=== PATIENT | male | born 1950 | race American Indian/Alaskan Native ===

== ENCOUNTER 2021-11-27 16:32 | Inpatient (IN) | payer MEDICAID, MEDICARE ==
[2021-11-27] MEDS ORDERED: SODIUM CHLORIDE 0.9% 1000 ML IV SOLN IV ONE (16:42)
[2021-11-27] MEDS ORDERED: CEFEPIME/NS 2 GM/100 ML 2 GM/100 ML BAG IV ONE (16:42)
[2021-11-27] MEDS ORDERED: VANCOMYCIN PHARMACY TO DOSE IV SCH ×2 (17:00→23:45)
--- NOTE | 2021-11-27 17:03 | Emergency Department Report ---
ED Fever HPI - General Chief Complaint: Fever Stated Complaint: SEPSIS PUI?: No Time Seen by Provider: 11/27/21 16:41 Source: patient, family, EMS Exam Limitations: clinical condition - History of Present Illness Initial Comments: Chief complaint: Not as responsive, weak HPI: This is a 71-year-old male with history of congestive heart failure and liver cancer with metastasis to the colon. He presents with confusion and weakness. He was in his normal state of health this morning. When daughter returned from running errands, she noticed that the patient was weak. He was not as responsive. He appeared to be panting and shivering. Blood pressure was 82/47 on EMS arrival. He was warm to touch. He received 250 mL of IV fluid. EMS administered dopamine. Tachycardia worsened after the dopamine infusion. Patient is confused. Unable to give history. I spoke with daughter [phone]. Daughter's name is Lizzy Webb. Extensive family history of cancer including mother and brother. Mr. Smiley was diagnosed with liver cancer October 2019. He decided to not undergo chemotherapy. His condition worsened this year. In October 2021 he sought medical treatment. Liver cancer has now "invaded" his colon. He received an infusion to bolster his immune system in October. He has not received any other type of treatment. Timing/Duration: just prior to arrival Fever Severity/Quality: subjective Associated Symptoms: other (Patient is altered) ED Review of Systems ROS: Stated complaint: SEPSIS Other details as noted in HPI Comment: Unobtainable due to pts medical conditions (Patient is critically ill and altered) ED Past Medical Hx - Past Medical History Previous Medical History?: Yes Hx Congestive Heart Failure: Yes Additional medical history: Metastatic liver cancer - Surgical History Past Surgical History?: No - Family History Family history: cancer (Excessive family history of cancer) - Social History Smoking Status: Former Smoker Substance Use Type: Alcohol ED Physical Exam - General Limitations: Altered Mental Status General appearance: in no apparent distress, lethargic, other (Appears ill, confabulating speech) - Head Head exam: Present: atraumatic, normocephalic - Eye Eye exam: Present: normal appearance - ENT ENT exam: Present: mucous membranes moist - Neck Neck exam: Present: normal inspection, full ROM - Respiratory Respiratory exam: Present: normal lung sounds bilaterally. Absent: respiratory distress, wheezes, rales, rhonchi - Cardiovascular Cardiovascular Exam: Present: normal rhythm, tachycardia, normal heart sounds. Absent: systolic murmur, diastolic murmur, rubs, gallop - GI/Abdominal GI/Abdominal exam: Present: soft, normal bowel sounds. Absent: distended, tenderness, guarding, rebound - Rectal Rectal exam: Present: deferred - Extremities Exam Extremities exam: Present: normal inspection - Back Exam Back exam: Present: normal inspection - Neurological Exam Neurological exam: Present: altered - Psychiatric Psychiatric exam: Present: flat affect - Skin Skin exam: Present: warm, dry, intact, normal color. Absent: rash ED Course Vital Signs 11/27/21 11/27/21 11/27/21 16:38 16:44 16:45 Temperature 100.5 F H Pulse Rate 136 H 134 H 135 H Respiratory 17 36 H 35 H Rate Blood Pressure 108/51 Blood Pressure 79/56 [Right] O2 Sat by Pulse 98 94 Oximetry 11/27/21 11/27/21 11/27/21 17:00 17:15 17:22 Temperature Pulse Rate 128 H 127 H 126 H Respiratory 31 H 30 H 30 H Rate Blood Pressure 108/51 93/49 Blood Pressure 93/49 [Right] O2 Sat by Pulse 95 99 Oximetry 11/27/21 11/27/21 11/27/21 17:27 17:31 17:45 Temperature Pulse Rate 124 H 122 H Respiratory 30 H 19 25 H Rate Blood Pressure 93/49 93/49 Blood Pressure [Right] O2 Sat by Pulse 100 99 100 Oximetry 11/27/21 11/27/21 18:01 18:15 Temperature Pulse Rate 120 H 120 H Respiratory 25 H 29 H Rate Blood Pressure 96/51 96/51 Blood Pressure [Right] O2 Sat by Pulse 100 100 Oximetry ED Medical Decision Making - Lab Data Result diagrams: 11/27/21 17:03 11/27/21 17:03 Laboratory Results - last 24 hr 11/27/21 11/27/21 11/27/21 17:03 17:03 17:03 WBC 20.1 H RBC 2.66 L Hgb 8.0 L Hct 25.2 L MCV 95 H MCH 30 MCHC 32 RDW 18.2 H Plt Count 351 Add Manual Diff Complete Total Counted 100 Seg Neutrophils % Sheet Pile Hammer Operator Seg Neuts % (Manual) 93.0 H Band Neutrophils % 4.0 Lymphocytes % (Manual) 2.0 L Reactive Lymphs % (Man) 0 Monocytes % (Manual) 1.0 Eosinophils % (Manual) 0 Basophils % (Manual) 0 Metamyelocytes % 0 Myelocytes % 0 Promyelocytes % 0 Blast Cells % 0 Nucleated RBC % Not Reportable Seg Neutrophils # Man 18.7 H Band Neutrophils # 0.8 Lymphocytes # (Manual) 0.4 L Abs React Lymphs (Man) 0.0 Monocytes # (Manual) 0.2 Eosinophils # (Manual) 0.0 Basophils # (Manual) 0.0 Metamyelocytes # 0.0 Myelocytes # 0.0 Promyelocytes # 0.0 Blast Cells # 0.0 WBC Morphology Not Reportable Hypersegmented Neuts Not Reportable Hyposegmented Neuts Not Reportable Hypogranular Neuts Not Reportable Smudge Cells Not Reportable Toxic Granulation 1+ Toxic Vacuolation Not Reportable Dohle Bodies Not Reportable Pelger-Huet Anomaly Not Reportable Eze Rods Not Reportable Platelet Estimate Consistent w auto Clumped Platelets Not Reportable Plt Clumps, EDTA Not Reportable Large Platelets Not Reportable Giant Platelets Not Reportable Platelet Satelliting Not Reportable Plt Morphology Comment Not Reportable RBC Morphology Not Reportable Dimorphic RBCs Not Reportable Polychromasia Not Reportable Hypochromasia Not Reportable Poikilocytosis Not Reportable Anisocytosis 1+ Microcytosis Not Reportable Macrocytosis Not Reportable Spherocytes Not Reportable Pappenheimer Bodies Not Reportable Sickle Cells Not Reportable Target Cells Not Reportable Tear Drop Cells Not Reportable Ovalocytes Not Reportable Helmet Cells Not Reportable [place] Bodies Not Reportable [place] Rings Not Reportable [place] Cells Not Reportable Bite Cells Not Reportable Crenated Cell Not Reportable Elliptocytes Not Reportable Acanthocytes (Spur) Not Reportable Rouleaux Not Reportable Hemoglobin C Crystals Not Reportable Schistocytes Not Reportable Malaria parasites Not Reportable Sage Bodies Not Reportable Hem Pathologist Commnt No Sodium 128 L Potassium 4.2 Chloride 96.9 L Carbon Dioxide 20 L Anion Gap 15 BUN 17 Creatinine 1.4 H Estimated GFR 50 BUN/Creatinine Ratio 12 Glucose 104 H Lactic Acid 4.30 H* Calcium 7.9 L Total Bilirubin 0.30 AST 99 H ALT 62 H Alkaline Phosphatase 178 H Total Protein 8.3 H Albumin 2.2 L Albumin/Globulin Ratio 0.4 - Radiology Data Radiology results: report reviewed Patient Name: CARL SMILEY Gender: Male Date of : 1950 Home Phone: Referring Provider: YAMILA DUMONT Organization: [facility] Accession Number: [id number] Requested Date: November 27, 2021 16:42 Report Status: Final Requested Procedure: 1 Procedure Description: XR chest 1V ap Modality: XR Findings Reporting MD: Ricardo Cai Dictation Time: November 27, 2021 16:03 Enamel Cracker: Not available Lead Driver Date: CHEST 1 VIEW INDICATION: fever sepsis. COMPARISON: None. FINDINGS: Support devices: None. Heart: Normal. Lungs/Pleura: Focal density in the inferomedial right hemithorax. The left lung is clear. No pleural abnormality. IMPRESSION: 1. Nonspecific density in the inferomedial right hemithorax is nonspecific. I do not see silhouetting of the right heart border or right hemidiaphragm which suggests this may be extrapulmonary. Large hiatal hernia could have this appearance. CT would be useful to better characterize this. Signer Name: Ricardo Cai MD Signed: 11/27/2021 4:03 PM Workstation Name: [id number] - Medical Decision Making 1. Septic shock: Unclear source of infection. Sepsis bundle initiated in the emergency department. 2. Metastatic liver cancer: Patient states that "I am on my last leg.". He understands that the cancer is terminal. I initiated end-of-life care discussion. He does not want to be on a ventilator. He is unclear if he wants aggressive treatment at this time. 3. Acute metabolic encephalopathy which resolved after resuscitation treatment emergency department. Patient able to give full history. Once blood pressure improved. Repeat blood pressure 99/54 currently map of 63. Admitted to hospital service. Critical Care Time: Yes Critical care time in (mins) excluding proc time.: 40 Critical care attestation.: If time is entered above; I have spent that time in minutes in the direct care of this critically ill patient, excluding procedure time. 40 minutes of critical care time excluding procedures were used in the care of the patient. I came immediately to the bedside upon patient's arrival. I obtained history from EMS at the bedside. I discussed treatment plan with the nursing team members. I reviewed electronic record. I spoke with daughter per phone. Patient presented in shock with significant hypotension. Patient required multiple interventions and reassessments. ED Disposition Clinical Impression: Septic shock, Acute metabolic encephalopathy, Metastatic cancer, Liver cancer Disposition: ADMITTED INPATIENT Is pt being admited?: Yes Does the pt Need Aspirin: No Condition: Fair
--- NOTE | 2021-11-27 17:07 | XRay Report ---
CHEST 1 VIEW INDICATION: fever sepsis. COMPARISON: None. FINDINGS: Support devices: None. Heart: Normal. Lungs/Pleura: Focal density in the inferomedial right hemithorax. The left lung is clear. No pleural abnormality. IMPRESSION: 1. Nonspecific density in the inferomedial right hemithorax is nonspecific. I do not see silhouetting of the right heart border or right hemidiaphragm which suggests this may be extrapulmonary. Large hi atal hernia could have this appearance. CT would be useful to better characterize this. Signer Name: Ricardo Cai MD Signed: 11/27/2021 5:03 PM Workstation Name: [id number]
[2021-11-27 17:33] LABS: Hematocrit 25.2 % (35.5-45.6); Mean Corpuscular HGB Conc 32 % (32-34); Mean Corpuscular Volume 95 fl (84-94); Platelet Count 351 K/mm3 (140-440); Red Blood Count 2.66 M/mm3 (3.65-5.03); Red Cell Distribution Width 18.2 % (13.2-15.2)
[2021-11-27 17:41] LABS: Albumin 2.2 g/dL (3.9-5); Calcium 7.9 mg/dL (8.4-10.2)
[2021-11-27] MEDS ORDERED: VANCOMYCIN 1,250 MG in SODIUM CHLORIDE 0.9% 500 ML 250 ML IV ONE (18:00)
[2021-11-27 18:13] LABS: Band Neutrophils # (Manual) 0.8 K/mm3; Basophils % (Manual) 0 % (0.0-1.8); Eosinophils % (Manual) 0 % (0.0-4.3); Total Cells Counted 100
[2021-11-27 18:14] LABS: Anisocytosis 1+; Platelet Estimate Consistent w Auto; Toxic Granulation 1+
[2021-11-27] MEDS ORDERED: SODIUM CHLORIDE 0.9% 1000 ML 1,000 ML IV ONE ×3 (18:20→18:21)
[2021-11-27 20:24] LABS: Bilirubin,Urine NEG (Negative); Blood,Urine SM (Negative); Color,Urine Yellow (Yellow); Mucus,Urine FEW /HPF; Protein,Urine <15 mg/dL mg/dL (Negative); Urobilinogen,Urine < 2.0 mg/dL (<2.0)
[2021-11-27] MEDS ORDERED: SODIUM CHLORIDE 0.9% 1000 ML 1,000 ML IV SCH (22:30)
[2021-11-27] MEDS ORDERED: SODIUM CHLORIDE 0.9% 500 ML 500 ML ONE (22:57)
[2021-11-27] MEDS ORDERED: SODIUM CHLORIDE 0.9% 500 ML 500 ML IV ONE (23:00)
--- NOTE | 2021-11-27 23:16 | History and Physical Report ---
History of Present Illness Date of examination: 11/27/21 Date of admission: 11/27/2021 Chief complaint: Fever and increasing shortness of breath since a.m. History of present illness: 71-year-old male with history of CHF, colon cancer with metastasis to the liver presents with confusion and generalized weakness. Patient was apparently in normal state of health until this morning. Daughter noticed that the patient was weak in the later part of the morning and was not as responsive. Patient was very short of breath. Blood pressure was 82/47 on EMS arrival. Patient had fever. EMS started him on dopamine. As per the daughter patient was diagnosed with metastatic cancer in October 2019. Patient decided not to undergo chemotherapy. His condition worsened this year. Patient received an infusion to bolster his immune system in October of this year. Patient has not received any other type of treatment. Daughters telephone number is [phone]. Family history of cancer present. - Past Medical History Previous Medical History?: Yes Hx Congestive Heart Failure: Yes Colon Cancer with metastasis to liver. - Surgical History Past Surgical History?: No - Family History Family history: cancer ( family history of cancer) - Social History Smoking Status: Former Smoker Substance Use Type: Alcohol Review of Systems ROS: Stated complaint: SEPSIS Other details as noted in HPI Comment: Unobtainable due to pts medical conditions (Patient is critically ill and altered) Medications and Allergies Allergies Allergy/AdvReac Type Severity Reaction Status Date / Time No Known Allergies Allergy Unverified 11/27/21 16:36 Home Medications Medication Instructions Recorded Confirmed Last Taken Type No Known Home Medications [No 11/28/21 11/28/21 Unknown History Reported Home Medications] Active Meds: Active Medications Vancomycin HCl 1,250 mg/ (Sodium Chloride) 275 mls @ 166.667 mls/hr IV Q24H FAHAD Sodium Chloride (Nacl 0.9% 1000 Ml) 1,000 mls @ 100 mls/hr IV DIRECT FAHAD Last Admin: 11/27/21 22:49 Dose: 100 mls/hr Sodium Chloride (Nacl 0.9% 500 Ml) 500 mls @ 999 mls/hr IV ONCE ONE Stop: 11/27/21 23:30 Last Admin: 11/27/21 23:01 Dose: 999 mls/hr Exam - Constitutional Vitals: Temp Pulse Resp BP Pulse Ox 98.6 F 99 H 16 83/51 98 02/21/22 19:44 11/27/21 23:00 11/27/21 23:00 11/27/21 23:00 11/27/21 23:00 General appearance: Present: mild distress, well-nourished - EENT Eyes: Present: PERRL ENT: hearing intact, clear oral mucosa - Neck Neck: Present: supple, normal ROM - Respiratory Respiratory effort: normal Respiratory: bilateral: CTA, rhonchi, wheezing - Cardiovascular Heart rate: 110 Rhythm: regular Heart Sounds: Present: S1 & S2. Absent: rub, click - Extremities Extremities: no ischemia, pulses intact, pulses symmetrical, No edema Peripheral Pulses: within normal limits - Abdominal General gastrointestinal: Present: soft, non-tender, non-distended, normal bowel sounds Male genitourinary: Present: normal - Rectal Rectal Exam: deferred - Integumentary Integumentary: Present: clear, warm, dry - Musculoskeletal Musculoskeletal: generalized weakness - Psychiatric Psychiatric: other (Lethargic) - Neurologic Neurologic: CNII-XII intact, moves all extremities, other (Lethargic) Results - Labs CBC & Chem 7: 11/28/21 06:43 11/27/21 17:03 Labs: Laboratory Last Values WBC 20.1 K/mm3 (4.5-11.0) H 11/27/21 17:03 RBC 2.66 M/mm3 (3.65-5.03) L 11/27/21 17:03 Hgb 8.0 gm/dl (11.8-15.2) L 11/27/21 17:03 Hct 25.2 % (35.5-45.6) L 11/27/21 17:03 MCV 95 fl (84-94) H 11/27/21 17:03 MCH 30 pg (28-32) 11/27/21 17:03 MCHC 32 % (32-34) 11/27/21 17:03 RDW 18.2 % (13.2-15.2) H 11/27/21 17:03 Plt Count 351 K/mm3 (140-440) 11/27/21 17:03 Add Manual Diff Complete 11/27/21 17:03 Total Counted 100 11/27/21 17:03 Seg Neutrophils % Quantitative Manager 11/27/21 17:03 Seg Neuts % (Manual) 93.0 % (40.0-70.0) H 11/27/21 17:03 Band Neutrophils % 4.0 % 11/27/21 17:03 Lymphocytes % (Manual) 2.0 % (13.4-35.0) L 11/27/21 17:03 Reactive Lymphs % (Man) 0 % 11/27/21 17:03 Monocytes % (Manual) 1.0 % (0.0-7.3) 11/27/21 17:03 Eosinophils % (Manual) 0 % (0.0-4.3) 11/27/21 17:03 Basophils % (Manual) 0 % (0.0-1.8) 11/27/21 17:03 Metamyelocytes % 0 % 11/27/21 17:03 Myelocytes % 0 % 11/27/21 17:03 Promyelocytes % 0 % 11/27/21 17:03 Blast Cells % 0 % 11/27/21 17:03 Nucleated RBC % Not Reportable 11/27/21 17:03 Seg Neutrophils # Man 18.7 K/mm3 (1.8-7.7) H 11/27/21 17:03 Band Neutrophils # 0.8 K/mm3 11/27/21 17:03 Lymphocytes # (Manual) 0.4 K/mm3 (1.2-5.4) L 11/27/21 17:03 Abs React Lymphs (Man) 0.0 K/mm3 11/27/21 17:03 Monocytes # (Manual) 0.2 K/mm3 (0.0-0.8) 11/27/21 17:03 Eosinophils # (Manual) 0.0 K/mm3 (0.0-0.4) 11/27/21 17:03 Basophils # (Manual) 0.0 K/mm3 (0.0-0.1) 11/27/21 17:03 Metamyelocytes # 0.0 K/mm3 11/27/21 17:03 Myelocytes # 0.0 K/mm3 11/27/21 17:03 Promyelocytes # 0.0 K/mm3 11/27/21 17:03 Blast Cells # 0.0 K/mm3 11/27/21 17:03 WBC Morphology Not Reportable 11/27/21 17:03 Hypersegmented Neuts Not Reportable 11/27/21 17:03 Hyposegmented Neuts Not Reportable 11/27/21 17:03 Hypogranular Neuts Not Reportable 11/27/21 17:03 Smudge Cells Not Reportable 11/27/21 17:03 Toxic Granulation 1+ 11/27/21 17:03 Toxic Vacuolation Not Reportable 11/27/21 17:03 Dohle Bodies Not Reportable 11/27/21 17:03 Pelger-Huet Anomaly Not Reportable 11/27/21 17:03 Eze Rods Not Reportable 11/27/21 17:03 Platelet Estimate Consistent w auto 11/27/21 17:03 Clumped Platelets Not Reportable 11/27/21 17:03 Plt Clumps, EDTA Not Reportable 11/27/21 17:03 Large Platelets Not Reportable 11/27/21 17:03 Giant Platelets Not Reportable 11/27/21 17:03 Platelet Satelliting Not Reportable 11/27/21 17:03 Plt Morphology Comment Not Reportable 11/27/21 17:03 RBC Morphology Not Reportable 11/27/21 17:03 Dimorphic RBCs Not Reportable 11/27/21 17:03 Polychromasia Not Reportable 11/27/21 17:03 Hypochromasia Not Reportable 11/27/21 17:03 Poikilocytosis Not Reportable 11/27/21 17:03 Anisocytosis 1+ 11/27/21 17:03 Microcytosis Not Reportable 11/27/21 17:03 Macrocytosis Not Reportable 11/27/21 17:03 Spherocytes Not Reportable 11/27/21 17:03 Pappenheimer Bodies Not Reportable 11/27/21 17:03 Sickle Cells Not Reportable 11/27/21 17:03 Target Cells Not Reportable 11/27/21 17:03 Tear Drop Cells Not Reportable 11/27/21 17:03 Ovalocytes Not Reportable 11/27/21 17:03 Helmet Cells Not Reportable 11/27/21 17:03 [place] Bodies Not Reportable 11/27/21 17:03 [place] Rings Not Reportable 11/27/21 17:03 [place] Cells Not Reportable 11/27/21 17:03 Bite Cells Not Reportable 11/27/21 17:03 Crenated Cell Not Reportable 11/27/21 17:03 Elliptocytes Not Reportable 11/27/21 17:03 Acanthocytes (Spur) Not Reportable 11/27/21 17:03 Rouleaux Not Reportable 11/27/21 17:03 Hemoglobin C Crystals Not Reportable 11/27/21 17:03 Schistocytes Not Reportable 11/27/21 17:03 Malaria parasites Not Reportable 11/27/21 17:03 Sage Bodies Not Reportable 11/27/21 17:03 Hem Pathologist Commnt No 11/27/21 17:03 Sodium 128 mmol/L (137-145) L 11/27/21 17:03 Potassium 4.2 mmol/L (3.6-5.0) 11/27/21 17:03 Chloride 96.9 mmol/L (98-107) L 11/27/21 17:03 Carbon Dioxide 20 mmol/L (22-30) L 11/27/21 17:03 Anion Gap 15 mmol/L 11/27/21 17:03 BUN 17 mg/dL (9-20) 11/27/21 17:03 Creatinine 1.4 mg/dL (0.8-1.3) H 11/27/21 17:03 Estimated GFR 50 ml/min 11/27/21 17:03 BUN/Creatinine Ratio 12 % 11/27/21 17:03 Glucose 104 mg/dL (75-100) H 11/27/21 17:03 Lactic Acid 4.30 mmol/L (0.7-2.0) H* 11/27/21 17:03 Calcium 7.9 mg/dL (8.4-10.2) L 11/27/21 17:03 Total Bilirubin 0.30 mg/dL (0.1-1.2) 11/27/21 17:03 AST 99 units/L (5-40) H 11/27/21 17:03 ALT 62 units/L (7-56) H 11/27/21 17:03 Alkaline Phosphatase 178 units/L (35-129) H 11/27/21 17:03 Total Protein 8.3 g/dL (6.3-8.2) H 11/27/21 17:03 Albumin 2.2 g/dL (3.9-5) L 11/27/21 17:03 Albumin/Globulin Ratio 0.4 % 11/27/21 17:03 Urine Color Yellow (Yellow) 11/27/21 19:42 Urine Turbidity Clear (Clear) 11/27/21 19:42 Urine pH 6.0 (5.0-7.0) 11/27/21 19:42 Ur Specific [place] 1.009 (1.003-1.030) 11/27/21 19:42 Urine Protein <15 mg/dl mg/dL (Negative) 11/27/21 19:42 Urine Glucose (UA) Neg mg/dL (Negative) 11/27/21 19:42 Urine Ketones Neg mg/dL (Negative) 11/27/21 19:42 Urine Blood Sm (Negative) 11/27/21 19:42 Urine Nitrite Neg (Negative) 11/27/21 19:42 Urine Bilirubin Neg (Negative) 11/27/21 19:42 Urine Urobilinogen < 2.0 mg/dL (<2.0) 11/27/21 19:42 Ur Leukocyte Esterase Neg (Negative) 11/27/21 19:42 Urine WBC (Auto) 3.0 /HPF (0.0-6.0) 11/27/21 19:42 Urine RBC (Auto) 1.0 /HPF (0.0-6.0) 11/27/21 19:42 U Epithel Cells (Auto) < 1.0 /HPF (0-13.0) 11/27/21 19:42 Urine Mucus Few /HPF 11/27/21 19:42 Short CBC 11/27/21 Range/Units 17:03 WBC 20.1 H (4.5-11.0) K/mm3 Hgb 8.0 L (11.8-15.2) gm/dl Hct 25.2 L (35.5-45.6) % Plt Count 351 (140-440) K/mm3 BMP 11/27/21 17:03 Sodium 128 L Potassium 4.2 Chloride 96.9 L Carbon Dioxide 20 L BUN 17 Creatinine 1.4 H Glucose 104 H Calcium 7.9 L Liver Function 11/27/21 Range/Units 17:03 Total Bilirubin 0.30 (0.1-1.2) mg/dL AST 99 H (5-40) units/L ALT 62 H (7-56) units/L Alkaline Phosphatase 178 H (35-129) units/L Albumin 2.2 L (3.9-5) g/dL Urine 11/27/21 Range/Units 19:42 Urine Color Yellow (Yellow) Urine pH 6.0 (5.0-7.0) Ur Specific [place] 1.009 (1.003-1.030) Urine Protein <15 mg/dl (Negative) mg/dL Urine Glucose (UA) Neg (Negative) mg/dL Microbiology: Microbiology 11/27/21 17:03 Peripheral/Venous Blood Culture - Preliminary Culture in Progress 11/27/21 17:03 Peripheral/Venous Blood Culture - Preliminary Culture in Progress Assessment and Plan Advance Directives: Yes (Full code) VTE prophylaxis?: Chemical Plan of care discussed with patient/family: Yes - Patient Problems (1) Septic shock Current Visit: Yes Status: Acute Plan to address problem: Patient has high white count, lactic acid levels elevated and hypotension Patient initiated on IV fluids, broad-spectrum IV antibiotics in the form of cefepime and vancomycin. ID consult requested. (2) Acute metabolic encephalopathy Current Visit: Yes Status: Acute Plan to address problem: Secondary to sepsis Treat the sepsis (3) Metastatic cancer Current Visit: Yes Status: Chronic Qualifiers: Area of secondary neoplastic involvement: digestive structure Plan to address problem: Patient refused chemotherapy and had 1 dose of immunotherapy Patient is realistic We will discuss hospice with the family Daughter's phone number on the chart (4) Hyponatremia Current Visit: Yes Status: Acute Plan to address problem: IV normal saline for now (5) ALMA (acute kidney injury) Current Visit: Yes Status: Acute Plan to address problem: IV fluids for now Vasomotor nephropathy (6) Malnutrition Current Visit: Yes Status: Chronic Qualifiers: Protein-calorie malnutrition severity: severe Plan to address problem: Severe malnutrition Patient started on dietary supplements and dietitian consult requested (7) DVT prophylaxis Current Visit: Yes Status: Acute Plan to address problem: On anticoagulation GI prophylaxis (8) Advance care planning Current Visit: Yes Status: Acute Plan to address problem: Disease education conducted, care plan discussed, diagnosis discussed, prognosis discussed. Patient is DNR patient and family acknowledges understanding and agreement with care plan. +30 minutes. To revisit the same discussion tomorrow when is more alert and oriented. Discussed with the daughter and her phone number is on the chart.
[2021-11-27] MEDS ORDERED: HYDROmorphone 1 MG/1 ML INJ IV PRN (23:22)
[2021-11-27] MEDS ORDERED: ACETAMINOPHEN 325 MG TAB PO PRN (23:22)
[2021-11-27] MEDS ORDERED: ONDANSETRON 4 MG/2 ML INJ IV PRN (23:22)
[2021-11-27] MEDS ORDERED: MORPHINE 2 MG/1 ML INJ IV PRN (23:22)
[2021-11-27] MEDS ORDERED: FAMOTIDINE 20 MG/2 ML INJ IV SCH (23:45)
[2021-11-27] MEDS ORDERED: CEFEPIME/NS 2 GM/100 ML 2 GM/100 ML BAG IV SCH (23:45)
[2021-11-28] MEDS: HEPARIN 5,000 UNIT/1 ML VIAL SUB-Q SCH ×3 (00:55→22:03)
[2021-11-28] MEDS: CEFEPIME/NS 2 GM/100 ML 2 GM/100 ML BAG IV SCH ×2 (05:10→17:29)
[2021-11-28 07:10] LABS: Hematocrit 22.1 % (35.5-45.6); Hemoglobin 7.3 gm/dl (11.8-15.2); Mean Corpuscular HGB Conc 33 % (32-34); Mean Corpuscular Volume 94 fl (84-94); Platelet Count 286 K/mm3 (140-440); Red Blood Count 2.35 M/mm3 (3.65-5.03); Red Cell Distribution Width 17.9 % (13.2-15.2)
[2021-11-28 07:38] LABS: Alanine Aminotransferase 70 units/L (7-56); BUN/Creatinine Ratio 15; Blood Urea Nitrogen 17 mg/dL (9-20); Calcium 7.4 mg/dL (8.4-10.2); Hemolysis Index 17
[2021-11-28 08:00] LABS: Band Neutrophils # (Manual) 0.5 K/mm3; Eosinophils % (Manual) 0 % (0.0-4.3); Total Cells Counted 100
[2021-11-28] MEDS ORDERED: LACTATED RINGERS 1,000 ML IV ONE (08:00)
[2021-11-28 08:01] LABS: Anisocytosis 1+; Platelet Estimate Consistent w Auto; Toxic Granulation 1+
--- NOTE | 2021-11-28 10:20 | Electrocardiograph Report ---
[facility] Test Date: 2021-11-27 Test Time: 17:09:06 Pat Name: CARL LLOYD Department: Room: A378 1 Gender: M [employer]: AUDREY : 1950 Requested By: YAMILA DUMONT Order Number: [id number] Reading MD: Jerson Gomez Measurements Intervals [place] Rate: 128 P: 75 TN: 132 QRS: 58 QRSD: 72 T: 55 QT: 314 QTc: 459 Interpretive Statements Sinus tachycardia No previous ECG available for comparison Electronically Signed On 11-28-2021 10:20:29 EST by Jerson Gomez
[2021-11-28] MEDS: FAMOTIDINE 20 MG TAB PO SCH ×2 (10:33→22:04)
--- NOTE | 2021-11-28 13:42 | Progress Note ---
Assessment and Plan Assessment and plan: Patient is a 71-year-old male past medical history of congestive heart failure, colon cancer with mets to the liver who presented with confusion and generalized weakness since being will worked up for sepsis. #Sepsic shock #Leukocytosisworsening #Lactic acidosisresolved On presentation WBC 20.1, lactic acid 4.3, blood pressure 79/56, pulse of 136, temperature 100.5. Current WBC 26.6 Continue with cefepime 2 g every 24 and vancomycin Infectious disease consulted; appreciate recs Pending blood cultures. Urinalysis clean. Requiring IV fluid resuscitation in the setting of hypotension. Continue to monitor. If patient's blood pressure continues to remain low, low clinical indication for vasopressor Continue to monitor #Acute metabolic encephalopathyresolved Likely secondary to sepsis #Metastatic colon cancer Patient has received fused chemotherapy with outpatient oncologist. Has unde rgone 1 dose of immunotherapy. Will discuss possible hospice with patient. #Hyponatremiaresolved Sodium of 134 #ALMA secondary to likely vasomotor nephropathyresolved Creatinine 1.1 #Severe protein caloric malnutrition Likely in the setting of metastatic colon cancer Starting dietary supplements. Nutrition consulted; appreciate recs #Insomnia Starting melatonin 10 mg nightly. Continue to monitor. #Advanced care planning -Disease education conducted, care plan discussed, diagnoses discussed, prognosis discussed, and patient acknowledges understanding with care plan -Time: +30 min Disposition Plan: Continue medical management Total Time Spent with Patient (Minutes): 45 minutes History Interval history: No acute events overnight. Hospitalist Physical - Constitutional Vitals: Temp Pulse Resp BP Pulse Ox 97.6 F 79 20 109/68 100 11/28/21 03:00 11/28/21 07:54 11/28/21 11:07 11/28/21 11:07 11/28/21 11:07 General appearance: Present: no acute distress, cachectic - EENT Eyes: Present: PERRL, EOM intact ENT: hearing intact, clear oral mucosa - Neck Neck: Present: supple, normal ROM - Respiratory Respiratory effort: normal Respiratory: bilateral: CTA - Cardiovascular Rhythm: regular Heart Sounds: Present: S1 & S2 - Extremities Extremities: no ischemia, pulses intact, pulses symmetrical, No edema, normal temperature, normal color Peripheral Pulses: within normal limits - Abdominal General gastrointestinal: soft, non-tender, non-distended, normal bowel sounds - Integumentary Integumentary: Present: clear, warm, dry - Psychiatric Psychiatric: appropriate mood/affect, cooperative - Neurologic Neurologic: CNII-XII intact - Allied Health Allied health notes reviewed: nursing Results - Labs CBC & Chem 7: 11/28/21 06:43 11/28/21 06:43 Labs: Laboratory Last Values WBC 26.6 K/mm3 (4.5-11.0) H 11/28/21 06:43 RBC 2.35 M/mm3 (3.65-5.03) L 11/28/21 06:43 Hgb 7.3 gm/dl (11.8-15.2) L 11/28/21 06:43 Hct 22.1 % (35.5-45.6) L 11/28/21 06:43 MCV 94 fl (84-94) 11/28/21 06:43 MCH 31 pg (28-32) 11/28/21 06:43 MCHC 33 % (32-34) 11/28/21 06:43 RDW 17.9 % (13.2-15.2) H 11/28/21 06:43 Plt Count 286 K/mm3 (140-440) 11/28/21 06:43 Add Manual Diff Complete 11/28/21 06:43 Total Counted 100 11/28/21 06:43 Seg Neutrophils % Forester Aide 11/27/21 17:03 Seg Neuts % (Manual) 91.0 % (40.0-70.0) H 11/28/21 06:43 Band Neutrophils % 2.0 % 11/28/21 06:43 Lymphocytes % (Manual) 4.0 % (13.4-35.0) L 11/28/21 06:43 Reactive Lymphs % (Man) 0 % 11/28/21 06:43 Monocytes % (Manual) 2.0 % (0.0-7.3) 11/28/21 06:43 Eosinophils % (Manual) 0 % (0.0-4.3) 11/28/21 06:43 Basophils % (Manual) 1.0 % (0.0-1.8) 11/28/21 06:43 Metamyelocytes % 0 % 11/28/21 06:43 Myelocytes % 0 % 11/28/21 06:43 Promyelocytes % 0 % 11/28/21 06:43 Blast Cells % 0 % 11/28/21 06:43 Nucleated RBC % Not Reportable 11/28/21 06:43 Seg Neutrophils # Man 24.2 K/mm3 (1.8-7.7) H 11/28/21 06:43 Band Neutrophils # 0.5 K/mm3 11/28/21 06:43 Lymphocytes # (Manual) 1.1 K/mm3 (1.2-5.4) L 11/28/21 06:43 Abs React Lymphs (Man) 0.0 K/mm3 11/28/21 06:43 Monocytes # (Manual) 0.5 K/mm3 (0.0-0.8) 11/28/21 06:43 Eosinophils # (Manual) 0.0 K/mm3 (0.0-0.4) 11/28/21 06:43 Basophils # (Manual) 0.3 K/mm3 (0.0-0.1) H 11/28/21 06:43 Metamyelocytes # 0.0 K/mm3 11/28/21 06:43 Myelocytes # 0.0 K/mm3 11/28/21 06:43 Promyelocytes # 0.0 K/mm3 11/28/21 06:43 Blast Cells # 0.0 K/mm3 11/28/21 06:43 WBC Morphology Not Reportable 11/28/21 06:43 Hypersegmented Neuts Not Reportable 11/28/21 06:43 Hyposegmented Neuts Not Reportable 11/28/21 06:43 Hypogranular Neuts Not Reportable 11/28/21 06:43 Smudge Cells Not Reportable 11/28/21 06:43 Toxic Granulation 1+ 11/28/21 06:43 Toxic Vacuolation Not Reportable 11/28/21 06:43 Dohle Bodies Not Reportable 11/28/21 06:43 Pelger-Huet Anomaly Not Reportable 11/28/21 06:43 Eze Rods Not Reportable 11/28/21 06:43 Platelet Estimate Consistent w auto 11/28/21 06:43 Clumped Platelets Not Reportable 11/28/21 06:43 Plt Clumps, EDTA Not Reportable 11/28/21 06:43 Large Platelets Not Reportable 11/28/21 06:43 Giant Platelets Not Reportable 11/28/21 06:43 Platelet Satelliting Not Reportable 11/28/21 06:43 Plt Morphology Comment Not Reportable 11/28/21 06:43 RBC Morphology Not Reportable 11/28/21 06:43 Dimorphic RBCs Not Reportable 11/28/21 06:43 Polychromasia Few 11/28/21 06:43 Hypochromasia Not Reportable 11/28/21 06:43 Poikilocytosis Not Reportable 11/28/21 06:43 Anisocytosis 1+ 11/28/21 06:43 Microcytosis Not Reportable 11/28/21 06:43 Macrocytosis Not Reportable 11/28/21 06:43 Spherocytes Not Reportable 11/28/21 06:43 Pappenheimer Bodies Not Reportable 11/28/21 06:43 Sickle Cells Not Reportable 11/28/21 06:43 Target Cells Not Reportable 11/28/21 06:43 Tear Drop Cells Not Reportable 11/28/21 06:43 Ovalocytes Not Reportable 11/28/21 06:43 Helmet Cells Not Reportable 11/28/21 06:43 [place] Bodies Not Reportable 11/28/21 06:43 [place] Rings Not Reportable 11/28/21 06:43 [place] Cells Not Reportable 11/28/21 06:43 Bite Cells Not Reportable 11/28/21 06:43 Crenated Cell Not Reportable 11/28/21 06:43 Elliptocytes Not Reportable 11/28/21 06:43 Acanthocytes (Spur) Not Reportable 11/28/21 06:43 Rouleaux Not Reportable 11/28/21 06:43 Hemoglobin C Crystals Not Reportable 11/28/21 06:43 Schistocytes Not Reportable 11/28/21 06:43 Malaria parasites Not Reportable 11/28/21 06:43 Sage Bodies Not Reportable 11/28/21 06:43 Hem Pathologist Commnt No 11/28/21 06:43 Sodium 134 mmol/L (137-145) L 11/28/21 06:43 Potassium 5.1 mmol/L (3.6-5.0) H D 11/28/21 06:43 Chloride 107.2 mmol/L (98-107) H 11/28/21 06:43 Carbon Dioxide 19 mmol/L (22-30) L 11/28/21 06:43 Anion Gap 13 mmol/L 11/28/21 06:43 BUN 17 mg/dL (9-20) 11/28/21 06:43 Creatinine 1.1 mg/dL (0.8-1.3) 11/28/21 06:43 Estimated GFR > 60 ml/min 11/28/21 06:43 BUN/Creatinine Ratio 15 % 11/28/21 06:43 Glucose 98 mg/dL (75-100) 11/28/21 06:43 Lactic Acid 1.90 mmol/L (0.7-2.0) 11/28/21 06:43 Calcium 7.4 mg/dL (8.4-10.2) L 11/28/21 06:43 Total Bilirubin 0.40 mg/dL (0.1-1.2) 11/28/21 06:43 AST 157 units/L (5-40) H 11/28/21 06:43 ALT 70 units/L (7-56) H 11/28/21 06:43 Alkaline Phosphatase 169 units/L (35-129) H 11/28/21 06:43 Total Protein 7.6 g/dL (6.3-8.2) 11/28/21 06:43 Albumin 2.0 g/dL (3.9-5) L 11/28/21 06:43 Albumin/Globulin Ratio 0.4 % 11/28/21 06:43 Urine Color Yellow (Yellow) 11/27/21 19:42 Urine Turbidity Clear (Clear) 11/27/21 19:42 Urine pH 6.0 (5.0-7.0) 11/27/21 19:42 Ur Specific [place] 1.009 (1.003-1.030) 11/27/21 19:42 Urine Protein <15 mg/dl mg/dL (Negative) 11/27/21 19:42 Urine Glucose (UA) Neg mg/dL (Negative) 11/27/21 19:42 Urine Ketones Neg mg/dL (Negative) 11/27/21 19:42 Urine Blood Sm (Negative) 11/27/21 19:42 Urine Nitrite Neg (Negative) 11/27/21 19:42 Urine Bilirubin Neg (Negative) 11/27/21 19:42 Urine Urobilinogen < 2.0 mg/dL (<2.0) 11/27/21 19:42 Ur Leukocyte Esterase Neg (Negative) 11/27/21 19:42 Urine WBC (Auto) 3.0 /HPF (0.0-6.0) 11/27/21 19:42 Urine RBC (Auto) 1.0 /HPF (0.0-6.0) 11/27/21 19:42 U Epithel Cells (Auto) < 1.0 /HPF (0-13.0) 11/27/21 19:42 Urine Mucus Few /HPF 11/27/21 19:42 Microbiology: Microbiology 11/27/21 19:42 Urine,Clean Catch Urine Culture - Preliminary NO GROWTH AFTER 24 HOURS 11/27/21 17:03 Peripheral/Venous Blood Culture - Preliminary Culture in Progress 11/27/21 17:03 Peripheral/Venous Blood Culture - Preliminary Culture in Progress Mcduffie/IV: Voiding Method Urinal Active Medications - Current Medications Current Medications: Generic Name Dose Route Start Last Admin Trade Name Freq PRN Reason Stop Dose Admin Acetaminophen 650 mg 11/27/21 23:22 Acetaminophen 325 Mg Tab PO Q4H PRN Pain MILD(1-3)/Fever >100.5/JC Famotidine 20 mg 11/28/21 10:00 11/28/21 10:33 Famotidine 20 Mg Tab PO 20 mg BID FAHAD Administration Heparin Sodium (Porcine) 5,000 unit 11/27/21 23:30 11/28/21 10:33 Heparin 5,000 Unit/1 Ml Vial SUB-Q 5,000 unit Q12HR FAHAD Administration Hydromorphone HCl 0.5 mg 11/27/21 23:22 Hydromorphone 1 Mg/1 Ml Inj IV Q3H PRN Pain , Severe (7-10) Vancomycin HCl 1,250 mg/ 275 mls @ 166.667 mls/hr 11/28/21 18:00 Sodium Chloride IV Q24H FAHAD Cefepime HCl 2 gm in 100 mls @ 200 mls/hr 11/28/21 06:00 11/28/21 05:10 Cefepime/Ns 2 Gm/100 Ml IV 200 mls/hr Q12H FAHAD Administration Protocol Melatonin 10 mg 11/28/21 22:00 Melatonin 5 Mg Tab PO QHS FAHAD Morphine Sulfate 2 mg 11/27/21 23:22 Morphine 2 Mg/1 Ml Inj IV Q4H PRN Pain, Moderate (4-6) Ondansetron HCl 4 mg 11/27/21 23:22 Ondansetron 4 Mg/2 Ml Inj IV Q8H PRN Nausea And Vomiting Sodium Chloride 10 ml 11/28/21 10:00 11/28/21 10:34 Sodium Chloride 0.9% 10 Ml Flush Syringe IV 10 ml BID FAHAD Administration Sodium Chloride 10 ml 11/27/21 23:22 Sodium Chloride 0.9% 10 Ml Flush Syringe IV PRN PRN LINE FLUSH Nutrition/Malnutrition Assess - Dietary Evaluation Nutrition/Malnutrition Findings: Nutrition Notes Start: 11/28/21 11:25 Freq: Status: Active Protocol: Document 11/28/21 11:25 JADE (Rec: 11/28/21 11:54 JADE [id number]) Nutrition Notes Need for Assessment generated from: MD Order Initial or Follow up Assessment Current Diagnosis Acute Kidney Injury,Sepsis, Malnutrition Other Pertinent Diagnosis Metabolic Encephalopathy, Hyponatremia, CHF, Metastatic Colon Cancer ... Current Diet Regular Diet (since B 11/28), D Supplements (since L 11/28). Labs/Tests 11/28: Na 134, K 5.1. Cl 107.2 , CO2 19, Ca 7.4. Pertinent Medications 11/28: Nutritionally unremarkable. Height 5 ft 10 in Weight 68.3 kg [place] Body Weight (kg) 75.45 BMI 21.6 Intake Prior to Admission Poor Weight change and time frame Pt states not having loss body weight recently. Weight Status Appropriate Subjective/Other Information RD consult for Dietary supplementation assessment. No reprots available on Pt's PO intake of meals at the time , but pt stated having poor appetite at admission. Pt has missing teeth, but no reported difficulty chewing, according to Physical Assessment History notes. Percent of energy/protein needs met: Prescribed Regular Diet provides for energy/protein needs (2,289 Kcal/89 g) during LOS; additionally, Dietary Supplements will compensate for possible poor or insufficient PO intake of meals with 1,050 Kcal and 60 g of protein. Burn Absent Trauma Absent GI Symptoms None,Other Food Allergy No Skin Integrity/Comment Assessment WNL. Minimum of two criteria No #1 Nutrition Diagnosis Predicted suboptimal energy intake Etiology Ongoing and concomitant chronic metabolic conditions. As Evidenced by Signs and Symptoms Pt stated having poor appetite at admission. Is patient on ventilator? No Is Patient Ambulatory and/or Out of Bed Yes REE-([place]-ambulatory/OOB) [ 1877.525 [id number]] Calculation Used for Recommendations [place] Additional Notes Protein: 1-1.2 g/Kg; 68-82 g/ day. Fluids: 1 ml/Kcal, or as per MD. Nutrition Intervention Change Diet Order: Continue Regular Diet. Add Supplement/Snack (indicate name/kcal 8 fl oz Ensure Enlive; TID. /protein ) Provides kCal: 1,050 Provides Protein (gm) 60 Goal #1 Compensate, through dietary supplementation, for possible poor or insufficient PO intake of meals during LOS. Goal #2 Maintain body weight within +/ -3% of admission body weight during LOS. Follow-Up By: 12/05/21 Additional Comments Continue monitoring food tolerance, %PO intake of meals , and BM.
--- NOTE | 2021-11-28 16:27 | Consultation ---
History of Present Illness - Reason for Consult Consult date: 11/28/21 - History of Present Illness 71-year-old man past medical history of CHF, colon cancer metastatic to the liver presenting the hospital altered mental status and weakness. He was reportedly in his normal state of health until the morning of admission, and was brought to the hospital by his daughter due to weakness. He was short of breath on admission and was hypotensive. He was diagnosed with his cancer October 2019, not on chemotherapy. Febrile to 100.5 with a white count of 26.6. Blood and urine cultures pending. Currently on cefepime, vancomycin. Imaging personally reviewed: Chest x-ray: No acute pneumonia seen. Past History Past Medical History: cancer Past Surgical History: No surgical history Social history: no significant social history Family history: CAD Medications and Allergies Allergies Allergy/AdvReac Type Severity Reaction Status Date / Time No Known Allergies Allergy Unverified 11/27/21 16:36 Home Medications Medication Instructions Recorded Confirmed Last Taken Type No Known Home Medications [No 11/28/21 11/28/21 Unknown History Reported Home Medications] Active Meds: Active Medications Acetaminophen (Acetaminophen 325 Mg Tab) 650 mg PO Q4H PRN PRN Reason: Pain MILD(1-3)/Fever >100.5/JC Famotidine (Famotidine 20 Mg Tab) 20 mg PO BID [facility] Last Admin: 11/28/21 10:33 Dose: 20 mg Heparin Sodium (Porcine) (Heparin 5,000 Unit/1 Ml Vial) 5,000 unit SUB-Q Q12HR FAHAD Last Admin: 11/28/21 10:33 Dose: 5,000 unit Hydromorphone HCl (Hydromorphone 1 Mg/1 Ml Inj) 0.5 mg IV Q3H PRN PRN Reason: Pain , Severe (7-10) Vancomycin HCl 1,250 mg/ (Sodium Chloride) 275 mls @ 166.667 mls/hr IV Q24H FAHAD Cefepime HCl (Cefepime/Ns 2 Gm/100 Ml) 2 gm in 100 mls @ 200 mls/hr IV Q12H FAHAD; Protocol Last Admin: 11/28/21 05:10 Dose: 200 mls/hr Melatonin (Melatonin 5 Mg Tab) 10 mg PO QHS FAHAD Morphine Sulfate (Morphine 2 Mg/1 Ml Inj) 2 mg IV Q4H PRN PRN Reason: Pain, Moderate (4-6) Ondansetron HCl (Ondansetron 4 Mg/2 Ml Inj) 4 mg IV Q8H PRN PRN Reason: Nausea And Vomiting Sodium Chloride (Sodium Chloride 0.9% 10 Ml Flush Syringe) 10 ml IV BID FAHAD Last Admin: 11/28/21 10:34 Dose: 10 ml Sodium Chloride (Sodium Chloride 0.9% 10 Ml Flush Syringe) 10 ml IV PRN PRN PRN Reason: LINE FLUSH Review of Systems ROS unobtainable: due to mental status Physical Examination - Physical Exam Narrative exam: Physical Exam: Constitutional: Confused, lethargic Head, Ears, Nose: Normocephalic, atraumatic. External ears, nose normal Eyes: Conjunctivae/corneas clear. No icterus. No ptosis. Neck: Supple, no meningeal signs Oral: dentition fair, no thrush Cardiovascular: S1, S2 normal. Respiratory: Good air entry, clear to auscultation bilaterally GI: Soft, non-tender; bowel sounds normal. No peritoneal signs. Musculoskeletal: No pedal edema, no cyanosis. Skin: No rash or abscess Hem/Lymphatic: No palpable cervical or supraclavicular nodes. No lymphangitis Psych: Confused Neurological: Confused - Constitutional Vitals: Vital Signs Temp Pulse Resp BP Pulse Ox 97.6 F 79 20 109/68 100 11/28/21 03:00 11/28/21 07:54 11/28/21 11:07 11/28/21 11:07 11/28/21 11:07 Temperature -Last 24 Hours Temperature 97.6 F Temperature 98.6 F Temperature 98.6 F Temperature 98.6 F Temperature 100.5 F Results - Labs CBC & Chem 7: 11/28/21 06:43 11/28/21 06:43 Labs: Abnormal lab results 11/27/21 11/27/21 11/27/21 Range/Units 17:03 17:03 17:03 WBC 20.1 H (4.5-11.0) K/mm3 RBC 2.66 L (3.65-5.03) M/mm3 Hgb 8.0 L (11.8-15.2) gm/dl Hct 25.2 L (35.5-45.6) % MCV 95 H (84-94) fl RDW 18.2 H (13.2-15.2) % Seg Neuts % (Manual) 93.0 H (40.0-70.0) % Lymphocytes % (Manual) 2.0 L (13.4-35.0) % Seg Neutrophils # Man 18.7 H (1.8-7.7) K/mm3 Lymphocytes # (Manual) 0.4 L (1.2-5.4) K/mm3 Basophils # (Manual) (0.0-0.1) K/mm3 Sodium 128 L (137-145) mmol/L Potassium (3.6-5.0) mmol/L Chloride 96.9 L (98-107) mmol/L Carbon Dioxide 20 L (22-30) mmol/L Creatinine 1.4 H (0.8-1.3) mg/dL Glucose 104 H (75-100) mg/dL Lactic Acid 4.30 H* (0.7-2.0) mmol/L Calcium 7.9 L (8.4-10.2) mg/dL AST 99 H (5-40) units/L ALT 62 H (7-56) units/L Alkaline Phosphatase 178 H (35-129) units/L Total Protein 8.3 H (6.3-8.2) g/dL Albumin 2.2 L (3.9-5) g/dL 11/27/21 11/28/21 11/28/21 Range/Units 23:01 06:43 06:43 WBC 26.6 H (4.5-11.0) K/mm3 RBC 2.35 L (3.65-5.03) M/mm3 Hgb 7.3 L (11.8-15.2) gm/dl Hct 22.1 L (35.5-45.6) % MCV (84-94) fl RDW 17.9 H (13.2-15.2) % Seg Neuts % (Manual) 91.0 H (40.0-70.0) % Lymphocytes % (Manual) 4.0 L (13.4-35.0) % Seg Neutrophils # Man 24.2 H (1.8-7.7) K/mm3 Lymphocytes # (Manual) 1.1 L (1.2-5.4) K/mm3 Basophils # (Manual) 0.3 H (0.0-0.1) K/mm3 Sodium 134 L (137-145) mmol/L Potassium 5.1 H D (3.6-5.0) mmol/L Chloride 107.2 H (98-107) mmol/L Carbon Dioxide 19 L (22-30) mmol/L Creatinine (0.8-1.3) mg/dL Glucose (75-100) mg/dL Lactic Acid 3.00 H* (0.7-2.0) mmol/L Calcium 7.4 L (8.4-10.2) mg/dL AST 157 H (5-40) units/L ALT 70 H (7-56) units/L Alkaline Phosphatase 169 H (35-129) units/L Total Protein (6.3-8.2) g/dL Albumin 2.0 L (3.9-5) g/dL Assessment and Plan Cultures: Blood culture no growth so far Urine culture no growth so far A/P: 71-year-old man past medical history metastatic colon cancer to the liver now with: #Acute encephalopathy: Unclear etiology as yet. Urinalysis is normal. Pending blood cultures. May need abdominal imaging if blood cultures no growth #Acute sepsis: Present with fevers and leukocytosis on admission. Unclear etiology #Metastatic colon cancer: Not on chemotherapy Recs: -Continue empiric vancomycin and cefepime for now -Follow-up blood cultures -If no improvement in white count and encephalopathy, consider CT chest, abdomen pelvis given cancer and risk for intra-abdominal infection. Thank you for the consult, we will continue to follow. Chiquita Bullard MD [facility] O: [phone] F: [phone]
[2021-11-28] MEDS: VANCOMYCIN 1,250 MG in SODIUM CHLORIDE 0.9% 250ML 250 ML IV SCH (17:29)
[2021-11-28] MEDS: MELATONIN 5 MG TAB PO SCH (22:05)
[2021-11-29] MEDS: CEFEPIME/NS 2 GM/100 ML 2 GM/100 ML BAG IV SCH ×2 (05:13→18:42)
[2021-11-29 08:07] LABS: Hematocrit 22.1 % (35.5-45.6); Hemoglobin 7.1 gm/dl (11.8-15.2); Mean Corpuscular HGB Conc 32 % (32-34); Mean Corpuscular Volume 94 fl (84-94); Platelet Count 296 K/mm3 (140-440); Red Blood Count 2.35 M/mm3 (3.65-5.03); Red Cell Distribution Width 18.9 % (13.2-15.2)
[2021-11-29 09:15] LABS: Eosinophils % (Manual) 0 % (0.0-4.3); Total Cells Counted 100
[2021-11-29 09:16] LABS: Platelet Estimate Consistent w Auto
[2021-11-29] MEDS: HEPARIN 5,000 UNIT/1 ML VIAL SUB-Q SCH ×2 (10:04→21:07)
[2021-11-29] MEDS: FAMOTIDINE 20 MG TAB PO SCH ×2 (10:04→21:07)
--- NOTE | 2021-11-29 15:05 | Cat Scan Report ---
CT CHEST, ABDOMEN, AND PELVIS WITH CONTRAST INDICATION : Assess for source of infection OMNI 300 100 ML. TECHNIQUE: 100 cc of Omnipaque 300 was administered intravenously. Helical imaging with sagittal an d coronal reformated images. All CT scans at this location are performed using CT dose reduction for ALARA by means of automated exposure control. COMPARISON: Chest x-ray performed earlier today FINDINGS: CHEST: There is a large soft tissue density masslike lesion in the right infrahilar region measuring up to 8.8 x 8.2 x 6.8 cm. The remainder of the lungs are clear. Minimal centrilobular emphysematous changes are noted in the upper lung zones. There are small bilateral layering pleural effusions. Hear t size is within normal limits with mild coronary artery calcifications. No pericardial effusion. The aorta and great vessels are unremarkable. No mediastinal adenopathy is detected. The bony structures are intact. No aggressive bony lesion. ABDOMEN/PELVIS: There is a large cavitating masslike lesion in the right abdomen containing a small amount of gas measuring 10.1 x 8.6 x 9.0 cm. Although this could represent an abscess, a necrotic mas s is thought more likely. This appears to arise from the right hemicolon. Colon cancer should be cons idered. There is no evidence for bowel obstruction. The remaining bowel loops are grossly unremarkabl e. The appendix is not confidently identified. There is an approximate 4 cm mass in the inferior right hepatic lobe which appears nearly continuous with the previously described right abdominal mass lesion. The remainder of the liver is unremarkable . The gallbladder is compressed medially but is grossly unremarkable. No biliary dilatation. The panc reas, spleen, adrenal glands and kidneys are unremarkable. The left kidney is slightly ectopic and lo w lying. Few scattered simple renal cysts are noted. There is trace perihepatic and pelvic ascites. No free air. Mild to moderate atherosclerotic disease is noted in the abdominal aorta. No aneurysm or stenosis. Th ere are a few mildly enlarged retroperitoneal lymph nodes. The largest node in the aortocaval chain m easures 1.3 cm in short axis. The bladder is unremarkable. Normal prostate gland. No suspicious bony lesion is identified in the th oracolumbar spine or pelvis. IMPRESSION: Large cavitating masslike lesion in the right abdomen as described. This mass appears to arise from t he colon and is suspicious for colon cancer. The superior margin of this lesion abuts the inferior ri ght hepatic lobe and appears to invade into the liver. There are a few mildly enlarged retroperitonea l lymph nodes. There is a large mass in the right lower lobe presumably representing metastasis. Small bilateral pleural effusions. Mild left renal ectopia. Small ascites. Signer Name: Robin Maya Jr, MD Signed: 11/29/2021 3:00 PM Workstation Name: [id number]
--- NOTE | 2021-11-29 15:40 | Progress Note ---
Assessment and Plan Assessment and plan: Patient is a 71-year-old male past medical history of congestive heart failure, colon cancer with mets to the liver who presented with confusion and generalized weakness since being will worked up for sepsis. #Sepsic shock #Leukocytosisimproving #Lactic acidosisresolved On presentation WBC 20.1, lactic acid 4.3, blood pressure 79/56, pulse of 136, temperature 100.5. Current WBC 26.6-->21.3 Continue with cefepime 2 g every 24 and vancomycin Infectious disease consulted; appreciate recs Blood cultures NGTD x24 hours. Urinalysis and urine culture unremarkable. CT chest and CT abdomen/pelvis (both with contrast; 11/29/2019) revealing "large cavitating masslike lesion in the right abdomen that appears to arise from the colon and the suspicious for colon cancer. There is also a large mass in the right lower lobe presumably representing metastasis. Also few mildly enlarged retroperitoneal lymph nodes". Consulting pulmonology; pending recs Requiring IV fluid resuscitation in the setting of hypotension. Continue to monitor. If patient's blood pressure continues to remain low, low clinical indication for vasopressor Continue to monitor #Acute metabolic encephalopathyresolved Likely secondary to sepsis #Metastatic colon cancer Patient has received fused chemotherapy with outpatient oncologist. Has undergone 1 dose of immunotherapy. Will discuss possible hospice with patient. #Hyponatremiaresolved Sodium of 134 #ALMA secondary to likely vasomotor nephropathyresolved Creatinine 1.1 #Severe protein caloric malnutrition Likely in the setting of metastatic colon cancer Starting dietary supplements. Nutrition consulted; appreciate recs #Insomnia Starting Seroquel 25 mg nightly. Continue to monitor #Advanced care planning -Disease education conducted, care plan discussed, diagnoses discussed, prognosis discussed, and patient acknowledges understanding with care plan -Time: +30 min Disposition Plan: Continue medical management Total Time Spent with Patient (Minutes): 45 minutes History Interval history: No acute events overnight. Hospitalist Physical - Constitutional Vitals: Temp Pulse Resp BP Pulse Ox 98.3 F 91 H 18 107/63 98 11/29/21 13:00 11/29/21 13:00 11/29/21 13:00 11/29/21 13:00 11/29/21 13:00 General appearance: Present: no acute distress, cachectic - EENT Eyes: Present: PERRL, EOM intact ENT: hearing intact, clear oral mucosa - Neck Neck: Present: supple, normal ROM - Respiratory Respiratory effort: normal Respiratory: bilateral: diminished - Cardiovascular Rhythm: regular Heart Sounds: Present: S1 & S2 - Extremities Extremities: no ischemia, pulses intact, pulses symmetrical, No edema, normal temperature, normal color Peripheral Pulses: within normal limits - Abdominal General gastrointestinal: soft, non-tender, non-distended, normal bowel sounds - Integumentary Integumentary: Present: clear, warm, dry - Psychiatric Psychiatric: appropriate mood/affect, intact judgment & insight, memory intact, cooperative - Neurologic Neurologic: CNII-XII intact, moves all extremities - Allied Health Allied health notes reviewed: nursing Results - Labs CBC & Chem 7: 11/29/21 07:30 11/28/21 06:43 Labs: Laboratory Last Values WBC 21.3 K/mm3 (4.5-11.0) H 11/29/21 07:30 RBC 2.35 M/mm3 (3.65-5.03) L 11/29/21 07:30 Hgb 7.1 gm/dl (11.8-15.2) L 11/29/21 07:30 Hct 22.1 % (35.5-45.6) L 11/29/21 07:30 MCV 94 fl (84-94) 11/29/21 07:30 MCH 30 pg (28-32) 11/29/21 07:30 MCHC 32 % (32-34) 11/29/21 07:30 RDW 18.9 % (13.2-15.2) H 11/29/21 07:30 Plt Count 296 K/mm3 (140-440) 11/29/21 07:30 Add Manual Diff Complete 11/29/21 07:30 Total Counted 100 11/29/21 07:30 Seg Neutrophils % Lead Front Desk Agent 11/27/21 17:03 Seg Neuts % (Manual) 92.0 % (40.0-70.0) H 11/29/21 07:30 Band Neutrophils % 0 % 11/29/21 07:30 Lymphocytes % (Manual) 5.0 % (13.4-35.0) L 11/29/21 07:30 Reactive Lymphs % (Man) 0 % 11/29/21 07:30 Monocytes % (Manual) 2.0 % (0.0-7.3) 11/29/21 07:30 Eosinophils % (Manual) 0 % (0.0-4.3) 11/29/21 07:30 Basophils % (Manual) 1.0 % (0.0-1.8) 11/29/21 07:30 Metamyelocytes % 0 % 11/29/21 07:30 Myelocytes % 0 % 11/29/21 07:30 Promyelocytes % 0 % 11/29/21 07:30 Blast Cells % 0 % 11/29/21 07:30 Nucleated RBC % Not Reportable 11/29/21 07:30 Seg Neutrophils # Man 19.6 K/mm3 (1.8-7.7) H 11/29/21 07:30 Band Neutrophils # 0.0 K/mm3 11/29/21 07:30 Lymphocytes # (Manual) 1.1 K/mm3 (1.2-5.4) L 11/29/21 07:30 Abs React Lymphs (Man) 0.0 K/mm3 11/29/21 07:30 Monocytes # (Manual) 0.4 K/mm3 (0.0-0.8) 11/29/21 07:30 Eosinophils # (Manual) 0.0 K/mm3 (0.0-0.4) 11/29/21 07:30 Basophils # (Manual) 0.2 K/mm3 (0.0-0.1) H 11/29/21 07:30 Metamyelocytes # 0.0 K/mm3 11/29/21 07:30 Myelocytes # 0.0 K/mm3 11/29/21 07:30 Promyelocytes # 0.0 K/mm3 11/29/21 07:30 Blast Cells # 0.0 K/mm3 11/29/21 07:30 WBC Morphology Not Reportable 11/29/21 07:30 Hypersegmented Neuts Not Reportable 11/29/21 07:30 Hyposegmented Neuts Not Reportable 11/29/21 07:30 Hypogranular Neuts Not Reportable 11/29/21 07:30 Smudge Cells Not Reportable 11/29/21 07:30 Toxic Granulation Not Reportable 11/29/21 07:30 Toxic Vacuolation Not Reportable 11/29/21 07:30 Dohle Bodies Not Reportable 11/29/21 07:30 Pelger-Huet Anomaly Not Reportable 11/29/21 07:30 Eze Rods Not Reportable 11/29/21 07:30 Platelet Estimate Consistent w auto 11/29/21 07:30 Clumped Platelets Not Reportable 11/29/21 07:30 Plt Clumps, EDTA Not Reportable 11/29/21 07:30 Large Platelets Not Reportable 11/29/21 07:30 Giant Platelets Not Reportable 11/29/21 07:30 Platelet Satelliting Not Reportable 11/29/21 07:30 Plt Morphology Comment Not Reportable 11/29/21 07:30 RBC Morphology Not Reportable 11/29/21 07:30 Dimorphic RBCs Not Reportable 11/29/21 07:30 Polychromasia Few 11/29/21 07:30 Hypochromasia Not Reportable 11/29/21 07:30 Poikilocytosis Not Reportable 11/29/21 07:30 Anisocytosis Not Reportable 11/29/21 07:30 Microcytosis Not Reportable 11/29/21 07:30 Macrocytosis Not Reportable 11/29/21 07:30 Spherocytes Not Reportable 11/29/21 07:30 Pappenheimer Bodies Not Reportable 11/29/21 07:30 Sickle Cells Not Reportable 11/29/21 07:30 Target Cells Not Reportable 11/29/21 07:30 Tear Drop Cells Not Reportable 11/29/21 07:30 Ovalocytes Not Reportable 11/29/21 07:30 Helmet Cells Not Reportable 11/29/21 07:30 [place] Bodies Not Reportable 11/29/21 07:30 [place] Rings Not Reportable 11/29/21 07:30 Adolfo Cells Not Reportable 11/29/21 07:30 Bite Cells Not Reportable 11/29/21 07:30 Crenated Cell Not Reportable 11/29/21 07:30 Elliptocytes Not Reportable 11/29/21 07:30 Acanthocytes (Spur) Not Reportable 11/29/21 07:30 Rouleaux Not Reportable 11/29/21 07:30 Hemoglobin C Crystals Not Reportable 11/29/21 07:30 Schistocytes Not Reportable 11/29/21 07:30 Malaria parasites Not Reportable 11/29/21 07:30 Sage Bodies Not Reportable 11/29/21 07:30 Hem Pathologist Commnt No 11/29/21 07:30 Sodium 134 mmol/L (137-145) L 11/28/21 06:43 Potassium 5.1 mmol/L (3.6-5.0) H D 11/28/21 06:43 Chloride 107.2 mmol/L (98-107) H 11/28/21 06:43 Carbon Dioxide 19 mmol/L (22-30) L 11/28/21 06:43 Anion Gap 13 mmol/L 11/28/21 06:43 BUN 17 mg/dL (9-20) 11/28/21 06:43 Creatinine 1.1 mg/dL (0.8-1.3) 11/28/21 06:43 Estimated GFR > 60 ml/min 11/28/21 06:43 BUN/Creatinine Ratio 15 % 11/28/21 06:43 Glucose 98 mg/dL (75-100) 11/28/21 06:43 Lactic Acid 1.90 mmol/L (0.7-2.0) 11/28/21 06:43 Calcium 7.4 mg/dL (8.4-10.2) L 11/28/21 06:43 Total Bilirubin 0.40 mg/dL (0.1-1.2) 11/28/21 06:43 AST 157 units/L (5-40) H 11/28/21 06:43 ALT 70 units/L (7-56) H 11/28/21 06:43 Alkaline Phosphatase 169 units/L (35-129) H 11/28/21 06:43 Total Protein 7.6 g/dL (6.3-8.2) 11/28/21 06:43 Albumin 2.0 g/dL (3.9-5) L 11/28/21 06:43 Albumin/Globulin Ratio 0.4 % 11/28/21 06:43 Urine Color Yellow (Yellow) 11/27/21 19:42 Urine Turbidity Clear (Clear) 11/27/21 19:42 Urine pH 6.0 (5.0-7.0) 11/27/21 19:42 Ur Specific [place] 1.009 (1.003-1.030) 11/27/21 19:42 Urine Protein <15 mg/dl mg/dL (Negative) 11/27/21 19:42 Urine Glucose (UA) Neg mg/dL (Negative) 11/27/21 19:42 Urine Ketones Neg mg/dL (Negative) 11/27/21 19:42 Urine Blood Sm (Negative) 11/27/21 19:42 Urine Nitrite Neg (Negative) 11/27/21 19:42 Urine Bilirubin Neg (Negative) 11/27/21 19:42 Urine Urobilinogen < 2.0 mg/dL (<2.0) 11/27/21 19:42 Ur Leukocyte Esterase Neg (Negative) 11/27/21 19:42 Urine WBC (Auto) 3.0 /HPF (0.0-6.0) 11/27/21 19:42 Urine RBC (Auto) 1.0 /HPF (0.0-6.0) 11/27/21 19:42 U Epithel Cells (Auto) < 1.0 /HPF (0-13.0) 11/27/21 19:42 Urine Mucus Few /HPF 11/27/21 19:42 Microbiology: Microbiology 11/27/21 19:42 Urine,Clean Catch Urine Culture - Final 11/27/21 17:03 Peripheral/Venous Blood Culture - Preliminary NO GROWTH AFTER 24 HOURS 11/27/21 17:03 Peripheral/Venous Blood Culture - Preliminary NO GROWTH AFTER 24 HOURS Mcduffie/IV: Voiding Method Urinal Active Medications - Current Medications Current Medications: Generic Name Dose Route Start Last Admin Trade Name Freq PRN Reason Stop Dose Admin Acetaminophen 650 mg 11/27/21 23:22 Acetaminophen 325 Mg Tab PO Q4H PRN Pain MILD(1-3)/Fever >100.5/JC Famotidine 20 mg 11/28/21 10:00 11/29/21 10:04 Famotidine 20 Mg Tab PO 20 mg BID FAHAD Administration Heparin Sodium (Porcine) 5,000 unit 11/27/21 23:30 11/29/21 10:04 Heparin 5,000 Unit/1 Ml Vial SUB-Q 5,000 unit Q12HR FAHAD Administration Hydromorphone HCl 0.5 mg 11/27/21 23:22 Hydromorphone 1 Mg/1 Ml Inj IV Q3H PRN Pain , Severe (7-10) Vancomycin HCl 1,250 mg/ 275 mls @ 166.667 mls/hr 11/28/21 18:00 11/28/21 17:29 Sodium Chloride IV 166.667 mls/hr Q24H FAHAD Administration Cefepime HCl 2 gm in 100 mls @ 200 mls/hr 11/28/21 06:00 11/29/21 05:13 Cefepime/Ns 2 Gm/100 Ml IV 200 mls/hr Q12H FAHAD Administration Protocol Melatonin 10 mg 11/28/21 22:00 11/28/21 22:05 Melatonin 5 Mg Tab PO 10 mg QHS FAHAD Administration Morphine Sulfate 2 mg 11/27/21 23:22 Morphine 2 Mg/1 Ml Inj IV Q4H PRN Pain, Moderate (4-6) Ondansetron HCl 4 mg 11/27/21 23:22 Ondansetron 4 Mg/2 Ml Inj IV Q8H PRN Nausea And Vomiting Quetiapine Fumarate 25 mg 11/29/21 22:00 Quetiapine 25 Mg Tab PO BID FAHAD Sodium Chloride 10 ml 11/28/21 10:00 11/29/21 10:05 Sodium Chloride 0.9% 10 Ml Flush Syringe IV 10 ml BID FAHAD Administration Sodium Chloride 10 ml 11/27/21 23:22 Sodium Chloride 0.9% 10 Ml Flush Syringe IV PRN PRN LINE FLUSH Nutrition/Malnutrition Assess - Dietary Evaluation Nutrition/Malnutrition Findings: Nutrition Notes Start: 11/28/21 11:2 5 Freq: Status: Active Protocol: Document 11/28/21 11:25 JADE (Rec: 11/28/21 11:54 JADE [id number]) Nutrition Notes Need for Assessment generated from: MD Order Initial or Follow up Assessment Current Diagnosis Acute Kidney Injury,Sepsis, Malnutrition Other Pertinent Diagnosis Metabolic Encephalopathy, Hyponatremia, CHF, Metastatic Colon Cancer ... Current Diet Regular Diet (since B 11/28), D Supplements (since L 11/28). Labs/Tests 11/28: Na 134, K 5.1. Cl 107.2 , CO2 19, Ca 7.4. Pertinent Medications 11/28: Nutritionally unremarkable. Height 5 ft 10 in Weight 68.3 kg [place] Body Weight (kg) 75.45 BMI 21.6 Intake Prior to Admission Poor Weight change and time frame Pt states not having loss body weight recently. Weight Status Appropriate Subjective/Other Information RD consult for Dietary supplementation assessment. No reprots available on Pt's PO intake of meals at the time , but pt stated having poor appetite at admission. Pt has missing teeth, but no reported difficulty chewing, according to Physical Assessment History notes. Percent of energy/protein needs met: Prescribed Regular Diet provides for energy/protein needs (2,289 Kcal/89 g) during LOS; additionally, Dietary Supplements will compensate for possible poor or insufficient PO intake of meals with 1,050 Kcal and 60 g of protein. Burn Absent Trauma Absent GI Symptoms None,Other Food Allergy No Skin Integrity/Comment Assessment WNL. Minimum of two criteria No #1 Nutrition Diagnosis Predicted suboptimal energy intake Etiology Ongoing and concomitant chronic metabolic conditions. As Evidenced by Signs and Symptoms Pt stated having poor appetite at admission. Is patient on ventilator? No Is Patient Ambulatory and/or Out of Bed Yes REE-([facility]-ambulatory/OOB) [ [id number] [id number]] Calculation Used for Recommendations [facility] Additional Notes Protein: 1-1.2 g/Kg; 68-82 g/ day. Fluids: 1 ml/Kcal, or as per MD. Nutrition Intervention Change Diet Order: Continue Regular Diet. Add Supplement/Snack (indicate name/kcal 8 fl oz Ensure Enlive; TID. /protein ) Provides kCal: 1,050 Provides Protein (gm) 60 Goal #1 Compensate, through dietary supplementation, for possible poor or insufficient PO intake of meals during LOS. Goal #2 Maintain body weight within +/ -3% of admission body weight during LOS. Follow-Up By: 12/05/21 Additional Comments Continue monitoring food tolerance, %PO intake of meals , and BM.
--- NOTE | 2021-11-29 18:21 | Progress Note ---
Assessment and Plan Cultures: Blood culture no growth so far Urine culture no growth so far A/P: 71-year-old man past medical history metastatic colon cancer to the liver now with: #Acute encephalopathy: Unclear etiology as yet. Urinalysis is normal. Pending blood cultures. May need abdominal imaging if blood cultures no growth #Acute sepsis: Present with fevers and leukocytosis on admission. Unclear etiology #Metastatic colon cancer: Not on chemotherapy Recs: -Continue empiric vancomycin and cefepime for now -Follow-up blood cultures -I suspect his leukocytosis is liekly driven by his large cancer with metastatic disease. Thank you for the consult, we will continue to follow. Chiquita Bullard MD [facility] O: [phone] F: [phone] Subjective Date of service: 11/29/21 Interval history: Afebrile, normal white count improved today to 21.3. Cultures remain negative so far. Imaging personally reviewed: CT abdomen pelvis: Large cavitating masslike lesion in the right abdomen, suspicious for colon cancer. Likely metastases. Objective - Exam Narrative Exam: Physical Exam: Constitutional: Confused, lethargic Head, Ears, Nose: Normocephalic, atraumatic. Eyes: Conjunctivae/corneas clear. No icterus. No ptosis. Neck: Supple, no meningeal signs Oral: dentition fair, no thrush Cardiovascular: S1, S2 normal. Respiratory: Good air entry, clear to auscultation bilaterally GI: Soft, non-tender; bowel sounds normal. No peritoneal signs. Musculoskeletal: No pedal edema, no cyanosis. Skin: No rash or abscess Hem/Lymphatic: No palpable cervical or supraclavicular nodes. Psych: Confused Neurological: Confused - Constitutional Vitals: Vital Signs Temp Pulse Resp BP Pulse Ox 98.3 F 91 H 18 107/63 98 11/29/21 13:00 11/29/21 13:00 11/29/21 13:00 11/29/21 13:00 11/29/21 13:00 Temperature -Last 24 Hours Temperature 98.3 F Temperature 98.4 F Temperature 98.1 F - Labs CBC & Chem 7: 11/29/21 07:30 11/28/21 06:43 Labs: Abnormal lab results 11/29/21 Range/Units 07:30 WBC 21.3 H (4.5-11.0) K/mm3 RBC 2.35 L (3.65-5.03) M/mm3 Hgb 7.1 L (11.8-15.2) gm/dl Hct 22.1 L (35.5-45.6) % RDW 18.9 H (13.2-15.2) % Seg Neuts % (Manual) 92.0 H (40.0-70.0) % Lymphocytes % (Manual) 5.0 L (13.4-35.0) % Seg Neutrophils # Man 19.6 H (1.8-7.7) K/mm3 Lymphocytes # (Manual) 1.1 L (1.2-5.4) K/mm3 Basophils # (Manual) 0.2 H (0.0-0.1) K/mm3
[2021-11-29] MEDS: VANCOMYCIN 1,250 MG in SODIUM CHLORIDE 0.9% 250ML 250 ML IV SCH (18:42)
[2021-11-29] MEDS: MELATONIN 5 MG TAB PO SCH (21:07)
[2021-11-29] MEDS: QUEtiapine 25 MG TAB PO SCH (21:07)
[2021-11-30] MEDS: CEFEPIME/NS 2 GM/100 ML 2 GM/100 ML BAG IV SCH (05:17)
[2021-11-30 06:04] LABS: Basophils # (Auto) 0.1 K/mm3 (0.0-0.1); Basophils % (Auto) 0.4 % (0.0-1.8); Eosinophils # (Auto) 0.2 K/mm3 (0.0-0.4); Eosinophils % (Auto) 1.6 % (0.0-4.3); Hematocrit 21.2 % (35.5-45.6); Hemoglobin 6.9 gm/dl (11.8-15.2); Lymphocytes # (Auto) 2.5 K/mm3 (1.2-5.4); Lymphocytes % (Auto) 17.1 % (13.4-35.0); Mean Corpuscular HGB Conc 32 % (32-34); Mean Corpuscular Volume 94 fl (84-94); Monocytes # (Auto) 1.1 K/mm3 (0.0-0.8); Monocytes % (Auto) 7.8 % (0.0-7.3); Platelet Count 274 K/mm3 (140-440); Red Blood Count 2.27 M/mm3 (3.65-5.03); Red Cell Distribution Width 18.4 % (13.2-15.2)
[2021-11-30 06:28] LABS: Alanine Aminotransferase 45 units/L (7-56); BUN/Creatinine Ratio 16; Blood Urea Nitrogen 11 mg/dL (9-20); Calcium 7.6 mg/dL (8.4-10.2); Hemolysis Index 1
[2021-11-30] MEDS: CALCIUM CARBONATE 1250 MG TAB PO SCH ×2 (09:32→21:23)
[2021-11-30] MEDS: HEPARIN 5,000 UNIT/1 ML VIAL SUB-Q SCH ×2 (09:32→21:17)
[2021-11-30] MEDS: FAMOTIDINE 20 MG TAB PO SCH ×2 (09:33→21:16)
[2021-11-30] MEDS: QUEtiapine 25 MG TAB PO SCH ×2 (09:33→21:20)
--- NOTE | 2021-11-30 11:42 | Consultation ---
History of Present Illness - Reason for Consult Consult date: 11/30/21 Elevated White Count with lung mass Requesting physician: CALEB OLSON - History of Present Illness 71 y/o male with metastatic colon ca found to have elevated white blood cell count with no obvious source. Has had negative blood cultures, and chest X-ray just shows the lung mass. No postobstructive features. No fever. Blood cultures have been negative. iD is following as well. Consulted by IMS for opinion about white count and other possible sources. Patient resting well on room air with no distress noted. Past History Past Medical History: cancer Past Surgical History: No surgical history Social history: no significant social history Family history: CAD Medications and Allergies Allergies Allergy/AdvReac Type Severity Reaction Status Date / Time No Known Allergies Allergy Unverified 11/27/21 16:36 Home Medications Medication Instructions Recorded Confirmed Last Taken Type levoFLOXacin [Levaquin TAB] 500 mg PO QDAY #10 tablet 12/01/21 Unknown Rx metroNIDAZOLE [Flagyl] 500 mg PO Q8HR #30 tablet 12/01/21 Unknown Rx Active Meds: Active Medications Acetaminophen (Acetaminophen 325 Mg Tab) 650 mg PO Q4H PRN PRN Reason: Pain MILD(1-3)/Fever >100.5/JC Last Admin: 11/30/21 06:05 Dose: 650 mg Calcium Carbonate/Glycine (Calcium Carbonate 1250 Mg Tab) 1,250 mg PO BID [facility] Last Admin: 11/30/21 09:32 Dose: 1,250 mg Famotidine (Famotidine 20 Mg Tab) 20 mg PO BID [facility] Last Admin: 11/30/21 09:33 Dose: 20 mg Heparin Sodium (Porcine) (Heparin 5,000 Unit/1 Ml Vial) 5,000 unit SUB-Q Q12HR [facility] Last Admin: 11/30/21 09:32 Dose: 5,000 unit Hydromorphone HCl (Hydromorphone 1 Mg/1 Ml Inj) 0.5 mg IV Q3H PRN PRN Reason: Pain , Severe (7-10) Vancomycin HCl 1,250 mg/ (Sodium Chloride) 275 mls @ 166.667 mls/hr IV Q24H [facility] Last Admin: 11/29/21 18:42 Dose: 166.667 mls/hr Cefepime HCl (Cefepime/Ns 2 Gm/100 Ml) 2 gm in 100 mls @ 200 mls/hr IV Q12H [facility]; Protocol Last Admin: 11/30/21 05:17 Dose: 200 mls/hr Melatonin (Melatonin 5 Mg Tab) 10 mg PO QHS [facility] Last Admin: 11/29/21 21:07 Dose: 10 mg Morphine Sulfate (Morphine 2 Mg/1 Ml Inj) 2 mg IV Q4H PRN PRN Reason: Pain, Moderate (4-6) Ondansetron HCl (Ondansetron 4 Mg/2 Ml Inj) 4 mg IV Q8H PRN PRN Reason: Nausea And Vomiting Quetiapine Fumarate (Quetiapine 25 Mg Tab) 25 mg PO BID [facility] Last Admin: 11/30/21 09:33 Dose: 25 mg Sodium Chloride (Sodium Chloride 0.9% 10 Ml Flush Syringe) 10 ml IV BID [facility] Last Admin: 11/30/21 09:33 Dose: 10 ml Sodium Chloride (Sodium Chloride 0.9% 10 Ml Flush Syringe) 10 ml IV PRN PRN PRN Reason: LINE FLUSH Exam - Constitutional Vitals: Temp Pulse Resp BP Pulse Ox 99.7 F H 84 19 97/55 92 11/30/21 05:24 11/30/21 05:24 11/30/21 05:24 11/30/21 05:24 11/30/21 05:24 Results - Labs CBC & Chem 7: 12/01/21 05:39 12/01/21 05:39 Labs: Abnormal lab results 11/30/21 11/30/21 Range/Units 05:49 05:49 WBC 14.4 H (4.5-11.0) K/mm3 RBC 2.27 L (3.65-5.03) M/mm3 Hgb 6.9 L (11.8-15.2) gm/dl Hct 21.2 L (35.5-45.6) % RDW 18.4 H (13.2-15.2) % [place] % (Auto) 7.8 H (0.0-7.3) % [place] # (Auto) 1.1 H (0.0-0.8) K/mm3 Seg Neutrophils % 73.1 H (40.0-70.0) % Seg Neutrophils # 10.6 H (1.8-7.7) K/mm3 Sodium 134 L (137-145) mmol/L Creatinine 0.7 L (0.8-1.3) mg/dL Calcium 7.6 L (8.4-10.2) mg/dL AST 65 H (5-40) units/L Alkaline Phosphatase 137 H (35-129) units/L Albumin 2.0 L (3.9-5) g/dL - Imaging and Cardiology Chest x-ray: image reviewed CT scan - abdomen: report reviewed CT scan - chest: image reviewed CT scan - pelvis: report reviewed Assessment and Plan 71 y/o male with metastatic colon cancer. Patient had been treated with broad spec IV abx and white count did improve but no obvious source. Nothing suspicious in the lungs. reviewed the cT of the abdomen and pelvis reports with necrotic areas. Discussed with IMS that this could be source but blood cultures negative thus far. Patient is an AND and is agreeable to hospice. Family is on board. Will sign off. Call if questions or concerns.
--- NOTE | 2021-11-30 12:54 | Progress Note ---
Assessment and Plan Microbiology: 11/27/2021 blood culture: GNR Urine culture without significant growth A/P: 71-year-old man past medical history metastatic colon cancer to the liver now with: #Sepsis, secondary to GNR bacteremia: Source is likely gut translocation from large colonic mass. CT chest, abdomen pelvis with large cavitating mass-like lesion in the right abdomen suspicious for colon cancer, enlarged r etroperitoneal lymph nodes, large mass in the right lower lobe of the lungs concerning for metastasis. #Metastatic colon cancer with CT evidence of enlarged retroperitoneal lymph nodes, large mass in the right lower lobe of the lungs concerning for metastasis Recs: -Antibiotic streamlined to IV Zosyn -Follow-up blood culture identification, likely discharge on oral antibiotics depending on susceptibilities -overall poor prognosis d/w Dr. Alford. Karthikeyan Granados MD, FACP, [facility] O: [phone] F: [phone] C: [phone] Subjective Date of service: 11/30/21 Interval history: No fever. Does have some abdominal pain. Denies any cough or shortness of breath. Tolerating antibiotics. Objective - Exam Narrative Exam: Physical Exam: Constitutional: Alert, cooperative. No acute distress Head, Ears, Nose: Normocephalic, atraumatic. External ears, nose normal Eyes: Conjunctivae/corneas clear. No icterus. No ptosis. Neck: Supple, no meningeal signs Cardiovascular: S1, S2 + Respiratory: Good air entry, clear to auscultation bilaterally GI: Soft, right-sided tenderness; bowel sounds normal. No peritoneal signs Musculoskeletal: No pedal edema, no cyanosis. Skin: No rash or abscess Hem/Lymphatic: No palpable cervical or supraclavicular nodes. No lymphangitis Psych: Mood ok. Affect normal Neurological: Awake, alert, oriented. No gross abnormality - Constitutional Vitals: Vital Signs Temp Pulse Resp BP Pulse Ox 97.5 F L 88 16 97/64 93 11/30/21 11:50 11/30/21 11:50 11/30/21 11:50 11/30/21 11:50 11/30/21 11:50 Temperature -Last 24 Hours Temperature 97.5 F Temperature 99.7 F Temperature 98.6 F Temperature 98.3 F - Labs CBC & Chem 7: 11/30/21 05:49 11/30/21 05:49 Labs: Abnormal lab results 11/30/21 11/30/21 Range/Units 05:49 05:49 WBC 14.4 H (4.5-11.0) K/mm3 RBC 2.27 L (3.65-5.03) M/mm3 Hgb 6.9 L (11.8-15.2) gm/dl Hct 21.2 L (35.5-45.6) % RDW 18.4 H (13.2-15.2) % [place] % (Auto) 7.8 H (0.0-7.3) % [place] # (Auto) 1.1 H (0.0-0.8) K/mm3 Seg Neutrophils % 73.1 H (40.0-70.0) % Seg Neutrophils # 10.6 H (1.8-7.7) K/mm3 Sodium 134 L (137-145) mmol/L Creatinine 0.7 L (0.8-1.3) mg/dL Calcium 7.6 L (8.4-10.2) mg/dL AST 65 H (5-40) units/L Alkaline Phosphatase 137 H (35-129) units/L Albumin 2.0 L (3.9-5) g/dL
[2021-11-30] MEDS: PIPERACIL/TAZOBACTA 4.5/NS 100 4.5 GM/100 ML VIAL IV SCH ×2 (14:55→21:15)
--- NOTE | 2021-11-30 17:20 | Progress Note ---
Assessment and Plan Assessment and plan: Patient is a 71-year-old male past medical history of congestive heart failure, colon cancer with mets to the liver who presented with confusion and generalized weakness since being will worked up for sepsis. #Sepsic shock #Leukocytosisimproving #Lactic acidosisresolved On presentation WBC 20.1, lactic acid 4.3, blood pressure 79/56, pulse of 136, temperature 100.5. Current WBC 26.6-->21.3-->14.4 Discontinued cefepime and vancomycin. Starting Zosyn in the setting of intra- abdominal gram-negative rods. Infectious disease consulted; appreciate recs Blood cultures NGTD positive for gram-negative rods. Urinalysis and urine culture unremarkable. CT chest and CT abdomen/pelvis (both with contrast; 11/29/2019) revealing "large cavitating masslike lesion in the right abdomen that appears to arise from the colon and the suspicious for colon cancer. There is also a large mass in the right lower lobe presumably representing metastasis. Also few mildly enlarged retroperitoneal lymph nodes". Consulting pulmonology; pending recs Continue to monitor #Acute metabolic encephalopathyresolved Likely secondary to sepsis #Metastatic colon cancer Patient has received fused chemotherapy with outpatient oncologist. Has undergone 1 dose of immunotherapy. Detailed discussion with patient today about hospice, and the patient was very susceptible and open to the idea. The benefits of hospice were discussed especially given patient's metastatic colon cancer with mets to the liver and presumed lung (based on recent CT chest during this hospitalization). The patient has amazing insight and is very realistic regarding his prognosis. Case management was brought in for further involvement, and the patient has decided to move forward with hospice. The patient will be discharged with hospice services once the speciation of his intra-abdominal infection is determined and a final antibiotic course is chosen. #Hyponatremiaresolved Sodium of 134 #ALMA secondary to likely vasomotor nephropathyresolved Creatinine 1.1 #Severe protein caloric malnutrition Likely in the setting of metastatic colon cancer Starting dietary supplements. Nutrition consulted; appreciate recs #Insomnia Continue Seroquel 25 mg nightly. Continue to monitor #Advanced care planning -Disease education conducted, care plan discussed, diagnoses discussed, p rognosis discussed, and patient acknowledges understanding with care plan -Time: +30 min Disposition Plan: Continue medical management Total Time Spent with Patient (Minutes): 45 minutes History Interval history: No acute events overnight. Hospitalist Physical - Constitutional Vitals: Temp Pulse Resp BP Pulse Ox 97.5 F L 88 16 97/64 93 11/30/21 11:50 11/30/21 11:50 11/30/21 11:50 11/30/21 11:50 11/30/21 11:50 General appearance: Present: no acute distress, cachectic - EENT Eyes: Present: PERRL, EOM intact ENT: hearing intact, clear oral mucosa - Neck Neck: Present: supple, normal ROM - Respiratory Respiratory effort: normal Respiratory: bilateral: CTA - Cardiovascular Rhythm: regular Heart Sounds: Present: S1 & S2 - Extremities Extremities: no ischemia, pulses intact, pulses symmetrical, No edema, normal temperature, normal color Peripheral Pulses: within normal limits - Abdominal General gastrointestinal: soft, non-tender, non-distended, normal bowel sounds - Integumentary Integumentary: Present: clear, warm, dry - Psychiatric Psychiatric: appropriate mood/affect, intact judgment & insight, memory intact, cooperative - Neurologic Neurologic: CNII-XII intact, moves all extremities - Allied Health Allied health notes reviewed: nursing Results - Labs CBC & Chem 7: 11/30/21 05:49 11/30/21 05:49 Labs: Laboratory Last Values WBC 14.4 K/mm3 (4.5-11.0) H 11/30/21 05:49 RBC 2.27 M/mm3 (3.65-5.03) L 11/30/21 05:49 Hgb 6.9 gm/dl (11.8-15.2) L 11/30/21 05:49 Hct 21.2 % (35.5-45.6) L 11/30/21 05:49 MCV 94 fl (84-94) 11/30/21 05:49 MCH 30 pg (28-32) 11/30/21 05:49 MCHC 32 % (32-34) 11/30/21 05:49 RDW 18.4 % (13.2-15.2) H 11/30/21 05:49 Plt Count 274 K/mm3 (140-440) 11/30/21 05:49 Lymph % (Auto) 17.1 % (13.4-35.0) 11/30/21 05:49 [place] % (Auto) 7.8 % (0.0-7.3) H 11/30/21 05:49 Eos % (Auto) 1.6 % (0.0-4.3) 11/30/21 05:49 Baso % (Auto) 0.4 % (0.0-1.8) 11/30/21 05:49 Lymph # (Auto) 2.5 K/mm3 (1.2-5.4) 11/30/21 05:49 [place] # (Auto) 1.1 K/mm3 (0.0-0.8) H 11/30/21 05:49 Eos # (Auto) 0.2 K/mm3 (0.0-0.4) 11/30/21 05:49 Baso # (Auto) 0.1 K/mm3 (0.0-0.1) 11/30/21 05:49 Add Manual Diff Complete 11/29/21 07:30 Total Counted 100 11/29/21 07:30 Seg Neutrophils % 73.1 % (40.0-70.0) H 11/30/21 05:49 Seg Neuts % (Manual) 92.0 % (40.0-70.0) H 11/29/21 07:30 Band Neutrophils % 0 % 11/29/21 07:30 Lymphocytes % (Manual) 5.0 % (13.4-35.0) L 11/29/21 07:30 Reactive Lymphs % (Man) 0 % 11/29/21 07:30 Monocytes % (Manual) 2.0 % (0.0-7.3) 11/29/21 07:30 Eosinophils % (Manual) 0 % (0.0-4.3) 11/29/21 07:30 Basophils % (Manual) 1.0 % (0.0-1.8) 11/29/21 07:30 Metamyelocytes % 0 % 11/29/21 07:30 Myelocytes % 0 % 11/29/21 07:30 Promyelocytes % 0 % 11/29/21 07:30 Blast Cells % 0 % 11/29/21 07:30 Nucleated RBC % Not Reportable 11/29/21 07:30 Seg Neutrophils # 10.6 K/mm3 (1.8-7.7) H 11/30/21 05:49 Seg Neutrophils # Man 19.6 K/mm3 (1.8-7.7) H 11/29/21 07:30 Band Neutrophils # 0.0 K/mm3 11/29/21 07:30 Lymphocytes # (Manual) 1.1 K/mm3 (1.2-5.4) L 11/29/21 07:30 Abs React Lymphs (Man) 0.0 K/mm3 11/29/21 07:30 Monocytes # (Manual) 0.4 K/mm3 (0.0-0.8) 11/29/21 07:30 Eosinophils # (Manual) 0.0 K/mm3 (0.0-0.4) 11/29/21 07:30 Basophils # (Manual) 0.2 K/mm3 (0.0-0.1) H 11/29/21 07:30 Metamyelocytes # 0.0 K/mm3 11/29/21 07:30 Myelocytes # 0.0 K/mm3 11/29/21 07:30 Promyelocytes # 0.0 K/mm3 11/29/21 07:30 Blast Cells # 0.0 K/mm3 11/29/21 07:30 WBC Morphology Not Reportable 11/29/21 07:30 Hypersegmented Neuts Not Reportable 11/29/21 07:30 Hyposegmented Neuts Not Reportable 11/29/21 07:30 Hypogranular Neuts Not Reportable 11/29/21 07:30 Smudge Cells Not Reportable 11/29/21 07:30 Toxic Granulation Not Reportable 11/29/21 07:30 Toxic Vacuolation Not Reportable 11/29/21 07:30 Dohle Bodies Not Reportable 11/29/21 07:30 Pelger-Huet Anomaly Not Reportable 11/29/21 07:30 Eze Rods Not Reportable 11/29/21 07:30 Platelet Estimate Consistent w auto 11/29/21 07:30 Clumped Platelets Not Reportable 11/29/21 07:30 Plt Clumps, EDTA Not Reportable 11/29/21 07:30 Large Platelets Not Reportable 11/29/21 07:30 Giant Platelets Not Reportable 11/29/21 07:30 Platelet Satelliting Not Reportable 11/29/21 07:30 Plt Morphology Comment Not Reportable 11/29/21 07:30 RBC Morphology Not Reportable 11/29/21 07:30 Dimorphic RBCs Not Reportable 11/29/21 07:30 Polychromasia Few 11/29/21 07:30 Hypochromasia Not Reportable 11/29/21 07:30 Poikilocytosis Not Reportable 11/29/21 07:30 Anisocytosis Not Reportable 11/29/21 07:30 Microcytosis Not Reportable 11/29/21 07:30 Macrocytosis Not Reportable 11/29/21 07:30 Spherocytes Not Reportable 11/29/21 07:30 Pappenheimer Bodies Not Reportable 11/29/21 07:30 Sickle Cells Not Reportable 11/29/21 07:30 Target Cells Not Reportable 11/29/21 07:30 Tear Drop Cells Not Reportable 11/29/21 07:30 Ovalocytes Not Reportable 11/29/21 07:30 Helmet Cells Not Reportable 11/29/21 07:30 [place] Bodies Not Reportable 11/29/21 07:30 [place] Rings Not Reportable 11/29/21 07:30 Adolfo Cells Not Reportable 11/29/21 07:30 Bite Cells Not Reportable 11/29/21 07:30 Crenated Cell Not Reportable 11/29/21 07:30 Elliptocytes Not Reportable 11/29/21 07:30 Acanthocytes (Spur) Not Reportable 11/29/21 07:30 Rouleaux Not Reportable 11/29/21 07:30 Hemoglobin C Crystals Not Reportable 11/29/21 07:30 Schistocytes Not Reportable 11/29/21 07:30 Malaria parasites Not Reportable 11/29/21 07:30 Sage Bodies Not Reportable 11/29/21 07:30 Hem Pathologist Commnt No 11/29/21 07:30 Sodium 134 mmol/L (137-145) L 11/30/21 05:49 Potassium 4.1 mmol/L (3.6-5.0) 11/30/21 05:49 Chloride 104.0 mmol/L (98-107) 11/30/21 05:49 Carbon Dioxide 22 mmol/L (22-30) 11/30/21 05:49 Anion Gap 12 mmol/L 11/30/21 05:49 BUN 11 mg/dL (9-20) 11/30/21 05:49 Creatinine 0.7 mg/dL (0.8-1.3) L 11/30/21 05:49 Estimated GFR > 60 ml/min 11/30/21 05:49 BUN/Creatinine Ratio 16 % 11/30/21 05:49 Glucose 86 mg/dL (75-100) 11/30/21 05:49 Lactic Acid 1.90 mmol/L (0.7-2.0) 11/28/21 06:43 Calcium 7.6 mg/dL (8.4-10.2) L 11/30/21 05:49 Total Bilirubin 0.40 mg/dL (0.1-1.2) 11/30/21 05:49 AST 65 units/L (5-40) H 11/30/21 05:49 ALT 45 units/L (7-56) 11/30/21 05:49 Alkaline Phosphatase 137 units/L (35-129) H 11/30/21 05:49 Total Protein 7.1 g/dL (6.3-8.2) 11/30/21 05:49 Albumin 2.0 g/dL (3.9-5) L 11/30/21 05:49 Albumin/Globulin Ratio 0.4 % 11/30/21 05:49 Urine Color Yellow (Yellow) 11/27/21 19:42 Urine Turbidity Clear (Clear) 11/27/21 19:42 Urine pH 6.0 (5.0-7.0) 11/27/21 19:42 Ur Specific [place] 1.009 (1.003-1.030) 11/27/21 19:42 Urine Protein <15 mg/dl mg/dL (Negative) 11/27/21 19:42 Urine Glucose (UA) Neg mg/dL (Negative) 11/27/21 19:42 Urine Ketones Neg mg/dL (Negative) 11/27/21 19:42 Urine Blood Sm (Negative) 11/27/21 19:42 Urine Nitrite Neg (Negative) 11/27/21 19:42 Urine Bilirubin Neg (Negative) 11/27/21 19:42 Urine Urobilinogen < 2.0 mg/dL (<2.0) 11/27/21 19:42 Ur Leukocyte Esterase Neg (Negative) 11/27/21 19:42 Urine WBC (Auto) 3.0 /HPF (0.0-6.0) 11/27/21 19:42 Urine RBC (Auto) 1.0 /HPF (0.0-6.0) 11/27/21 19:42 U Epithel Cells (Auto) < 1.0 /HPF (0-13.0) 11/27/21 19:42 Urine Mucus Few /HPF 11/27/21 19:42 Microbiology: Microbiology 11/27/21 17:03 Peripheral/Venous Blood Culture - Preliminary 11/27/21 17:03 Peripheral/Venous Blood Culture - Preliminary NO GROWTH AFTER 48 HOURS 11/27/21 19:42 Urine,Clean Catch Urine Culture - Final Mcduffie/IV: Voiding Method Urinal Active Medications - Current Medications Current Medications: Generic Name Dose Route Start Last Admin Trade Name Freq PRN Reason Stop Dose Admin Acetaminophen 650 mg 11/27/21 23:22 11/30/21 06:05 Acetaminophen 325 Mg Tab PO 650 mg Q4H PRN Administration Pain MILD(1-3)/Fever >100.5/JC Calcium Carbonate/Glycine 1,250 mg 11/30/21 10:00 11/30/21 09:32 Calcium Carbonate 1250 Mg Tab PO 1,250 mg BID FAHAD Administration Famotidine 20 mg 11/28/21 10:00 11/30/21 09:33 Famotidine 20 Mg Tab PO 20 mg BID FAHAD Administration Heparin Sodium (Porcine) 5,000 unit 11/27/21 23:30 11/30/21 09:32 Heparin 5,000 Unit/1 Ml Vial SUB-Q 5,000 unit Q12HR FAHAD Administration Hydromorphone HCl 0.5 mg 11/27/21 23:22 Hydromorphone 1 Mg/1 Ml Inj IV Q3H PRN Pain , Severe (7-10) Piperacillin Sod/Tazobactam Sod 4.5 gm in 100 mls @ 200 mls/hr 11/30/21 14:00 11/30/21 14:55 Zosyn/Ns 4.5gm/100ml IV 200 mls/hr Q8HR FAHAD Administration Protocol Melatonin 10 mg 11/28/21 22:00 11/29/21 21:07 Melatonin 5 Mg Tab PO 10 mg QHS FAHAD Administration Morphine Sulfate 2 mg 11/27/21 23:22 Morphine 2 Mg/1 Ml Inj IV Q4H PRN Pain, Moderate (4-6) Ondansetron HCl 4 mg 11/27/21 23:22 Ondansetron 4 Mg/2 Ml Inj IV Q8H PRN Nausea And Vomiting Quetiapine Fumarate 25 mg 11/29/21 22:00 11/30/21 09:33 Quetiapine 25 Mg Tab PO 25 mg BID FAHAD Administration Sodium Chloride 10 ml 11/28/21 10:00 11/30/21 09:33 Sodium Chloride 0.9% 10 Ml Flush Syringe IV 10 ml BID FAHAD Administration Sodium Chloride 10 ml 11/27/21 23:22 Sodium Chloride 0.9% 10 Ml Flush Syringe IV PRN PRN LINE FLUSH Nutrition/Malnutrition Assess - Dietary Evaluation Nutrition/Malnutrition Findings: Nutrition Notes Start: 11/28/21 11: 25 Freq: Status: Active Protocol: Document 11/28/21 11:25 JADE (Rec: 11/28/21 11:54 JADE [id number]) Nutrition Notes Need for Assessment generated from: MD Order Initial or Follow up Assessment Current Diagnosis Acute Kidney Injury,Sepsis, Malnutrition Other Pertinent Diagnosis Metabolic Encephalopathy, Hyponatremia, CHF, Metastatic Colon Cancer ... Current Diet Regular Diet (since B 11/28), D Supplements (since L 11/28). Labs/Tests 11/28: Na 134, K 5.1. Cl 107.2 , CO2 19, Ca 7.4. Pertinent Medications 11/28: Nutritionally unremarkable. Height 5 ft 10 in Weight 68.3 kg Ramona Body Weight (kg) 75.45 BMI 21.6 Intake Prior to Admission Poor Weight change and time frame Pt states not having loss body weight recently. Weight Status Appropriate Subjective/Other Information RD consult for Dietary supplementation assessment. No reprots available on Pt's PO intake of meals at the time , but pt stated having poor appetite at admission. Pt has missing teeth, but no reported difficulty chewing, according to Physical Assessment History notes. Percent of energy/protein needs met: Prescribed Regular Diet provides for energy/protein needs (2,289 Kcal/89 g) during LOS; additionally, Dietary Supplements will compensate for possible poor or insufficient PO intake of meals with 1,050 Kcal and 60 g of protein. Burn Absent Trauma Absent GI Symptoms None,Other Food Allergy No Skin Integrity/Comment Assessment WNL. Minimum of two criteria No #1 Nutrition Diagnosis Predicted suboptimal energy intake Etiology Ongoing and concomitant chronic metabolic conditions. As Evidenced by Signs and Symptoms Pt stated having poor appetite at admission. Is patient on ventilator? No Is Patient Ambulatory and/or Out of Bed Yes [facility] [ [id number] [id number]] Calculation Used for Recommendations [facility] Additional Notes Protein: 1-1.2 g/Kg; 68-82 g/ day. Fluids: 1 ml/Kcal, or as per MD. Nutrition Intervention Change Diet Order: Continue Regular Diet. Add Supplement/Snack (indicate name/kcal 8 fl oz Ensure Enlive; TID. /protein ) Provides kCal: 1,050 Provides Protein (gm) 60 Goal #1 Compensate, through dietary supplementation, for possible poor or insufficient PO intake of meals during LOS. Goal #2 Maintain body weight within +/ -3% of admission body weight during LOS. Follow-Up By: 12/05/21 Additional Comments Continue monitoring food tolerance, %PO intake of meals , and BM.
[2021-11-30] MEDS: MELATONIN 5 MG TAB PO SCH (21:16)
[2021-12-01 06:00] LABS: Basophils # (Auto) 0.1 K/mm3 (0.0-0.1); Basophils % (Auto) 0.4 % (0.0-1.8); Eosinophils # (Auto) 0.2 K/mm3 (0.0-0.4); Eosinophils % (Auto) 1.6 % (0.0-4.3); Hematocrit 20.2 % (35.5-45.6); Hemoglobin 6.6 gm/dl (11.8-15.2); Lymphocytes # (Auto) 2.8 K/mm3 (1.2-5.4); Lymphocytes % (Auto) 22.7 % (13.4-35.0); Mean Corpuscular HGB Conc 33 % (32-34); Mean Corpuscular Volume 94 fl (84-94); Monocytes # (Auto) 1.5 K/mm3 (0.0-0.8); Monocytes % (Auto) 11.9 % (0.0-7.3); Platelet Count 281 K/mm3 (140-440); Red Blood Count 2.16 M/mm3 (3.65-5.03); Red Cell Distribution Width 18.4 % (13.2-15.2)
[2021-12-01] MEDS: PIPERACIL/TAZOBACTA 4.5/NS 100 4.5 GM/100 ML VIAL IV SCH (06:00)
[2021-12-01 06:17] LABS: BUN/Creatinine Ratio 13; Blood Urea Nitrogen 10 mg/dL (9-20); Calcium 7.8 mg/dL (8.4-10.2); Hemolysis Index 0
[2021-12-01] MEDS ORDERED: SODIUM CHLORIDE 0.9% 500 ML 500 ML IV NR (07:41)
[2021-12-01] MEDS: HEPARIN 5,000 UNIT/1 ML VIAL SUB-Q SCH (09:39)
[2021-12-01] MEDS: FAMOTIDINE 20 MG TAB PO SCH (09:39)
[2021-12-01] MEDS: CALCIUM CARBONATE 1250 MG TAB PO SCH (09:43)
--- NOTE | 2021-12-01 10:59 | Progress Note ---
Assessment and Plan Microbiology: 11/27/2021 blood culture: GNR Urine culture without significant growth A/P: 71-year-old man past medical history metastatic colon cancer to the liver now with: #Sepsis, secondary to GNR bacteremia: Source is likely gut translocation from large colonic mass. CT chest, abdomen pelvis with large cavitating mass-like lesion in the right abdomen suspicious for colon cancer, enlarged r etroperitoneal lymph nodes, large mass in the right lower lobe of the lungs concerning for metastasis. #Metastatic colon cancer with CT evidence of enlarged retroperitoneal lymph nodes, large mass in the right lower lobe of the lungs concerning for metastasis Recs: -GNR isolate has been sent to reference laboratory for additional testing, hence ID and susceptibilities likely will not be available for another week. Patient is going to be discharged on hospice, hence reasonable to discharge him on PO levofloxacin 500 mg daily plus PO Flagyl 500 mg TID for 10 more days -overall poor prognosis, agree with hospice d/w Dr. Alford. Karthikeyan Granados MD, FACP, [facility] O: [phone] F: [phone] C: [phone] Subjective Date of service: 12/01/21 Interval history: No fever. Abdominal pain controlled, he thinks some of it is from the SQ abdominal injections for DVT prophylaxis. Objective - Exam Narrative Exam: Physical Exam: Constitutional: Alert, cooperative. No acute distress Head, Ears, Nose: Normocephalic, atraumatic. External ears, nose normal Eyes: Conjunctivae/corneas clear. No icterus. No ptosis. Neck: Supple, no meningeal signs Cardiovascular: S1, S2 + Respiratory: Good air entry, clear to auscultation bilaterally GI: Soft, right-sided tenderness; bowel sounds normal. No peritoneal signs Musculoskeletal: No pedal edema, no cyanosis. Skin: No rash or abscess Hem/Lymphatic: No palpable cervical or supraclavicular nodes. No lymphangitis Psych: Mood ok. Affect normal Neurological: Awake, alert, oriented. No gross abnormality - Constitutional Vitals: Vital Signs Temp Pulse Resp BP Pulse Ox 98.0 F 74 20 121/73 96 12/01/21 05:25 12/01/21 05:25 12/01/21 05:25 12/01/21 05:25 12/01/21 05:25 Temperature -Last 24 Hours Temperature 98.0 F Temperature 98.2 F Temperature 97.5 F - Labs CBC & Chem 7: 12/01/21 05:39 12/01/21 05:39 Labs: Abnormal lab results 12/01/21 12/01/21 12/01/21 Range/Units 05:39 05:39 08:10 WBC 12.5 H (4.5-11.0) K/mm3 RBC 2.16 L (3.65-5.03) M/mm3 Hgb 6.6 L (11.8-15.2) gm/dl Hct 20.2 L (35.5-45.6) % RDW 18.4 H (13.2-15.2) % [place] % (Auto) 11.9 H (0.0-7.3) % [place] # (Auto) 1.5 H (0.0-0.8) K/mm3 Seg Neutrophils # 7.9 H (1.8-7.7) K/mm3 Sodium 136 L (137-145) mmol/L Calcium 7.8 L (8.4-10.2) mg/dL Crossmatch See Detail
--- NOTE | 2021-12-01 11:00 | Discharge Summary ---
Providers - Providers Date of Admission: 11/27/21 23:22 Date of discharge: 12/01/21 Attending physician: CALEB OLSON MD 11/27/21 23:22 Consult to Physician [CONS] Routine Comment: Consulting Provider: DANIEL APONTE Physician Instructions: Reason For Exam: Sepsis 11/28/21 04:14 Consult to Dietitian/Nutrition [CONS] Routine Physician Instructions: Reason For Exam: Reason for Consult: Pt needs oral supplement 11/28/21 07:18 Consult to Dietitian/Nutrition [CONS] Routine Physician Instructions: Reason For Exam: Reason for Consult: Pt needs oral supplement 11/29/21 15:40 Consult to Physician [CONS] Routine Comment: Consulting Provider: VIRIDIANA LUBIN Physician Instructions: Reason For Exam: Sepsis of unknown source. Primary care physician: [employer] STRAIGHTENER Hospitalization Reason for admission: Septic shock; ALMA; acute toxic metabolic encephalopathy Condition: Fair Pertinent studies: Reviewed. Procedures: None. Hospital course: Patient is a 71-year-old male past medical history of congestive heart failure, malnutrition, and stage IV colon cancer (diagnosed October 2019declined chemotherapy) with mets to the liver who presented with worsening confusion and generalized weakness. During EMS transport he was found to have a blood pressure of 82/47, febrile, tachycardic to 136, lactic acid 4.3, and WBC 20.1. The patient was started on IV fluids and IV antibiotics (vancomycin and and cefepime). Urinalysis was negative. Blood cultures were drawn, and infectious disease was consulted for further management. Was also found to have hyponatremia that later resolved. Blood cultures revealed gram-negative rods with speciation is pending. The patient demonstrated an improvement with antibiotics, and they were adjusted to Zosyn in the setting of gram-negative rods bacteremia. Due to it taking approximately 7 to 10 days for speciation, the decision was made to transition the patient to p.o. antibiotics (Levaquin 500 mg daily and Flagyl 500 mg every 8 hours) for 10-day course. During the patient's hospitalization, the topic of hospice was brought up, and the patient was receptive to learning more information. The patient will be discharging with hospice services at home. The patient expresses understanding. Patient is medically clear for discharge. Disposition: 50 HOSPICE/HOME Final Discharge Diagnosis (Prints w/discharge instructions): Septic shock, lactic acidosis, gram-negative sandra bacteremia, acute toxic metabolic encephalopathy, hyponatremia, ALMA secondary to vasomotor nephropathy, severe protein caloric malnutrition, metastatic colon cancer, insomnia Time spent for discharge: 45 min Core Measure Documentation - Palliative Care Palliative Care/ Comfort Measures: Hospice Care - Core Measures Any of the following diagnoses?: none Exam - Constitutional Vitals: Temp Pulse Resp BP Pulse Ox 98.0 F 74 20 121/73 96 12/01/21 05:25 12/01/21 05:25 12/01/21 05:25 12/01/21 05:25 12/01/21 05:25 General appearance: Present: no acute distress, cachectic - EENT Eyes: Present: PERRL, EOM intact ENT: hearing intact, clear oral mucosa - Neck Neck: Present: supple, normal ROM - Respiratory Respiratory effort: normal Respiratory: bilateral: CTA - Cardiovascular Rhythm: regular Heart Sounds: Present: S1 & S2 - Extremities Extremities: no ischemia, pulses intact, pulses symmetrical, No edema, normal temperature, normal color Peripheral Pulses: within normal limits - Abdominal General gastrointestinal: Present: soft, non-tender, non-distended, normal bowel sounds Male genitourinary: Present: deferred - Rectal Rectal Exam: deferred - Integumentary Integumentary: Present: clear, warm, dry - Musculoskeletal Musculoskeletal: generalized weakness - Psychiatric Psychiatric: appropriate mood/affect, intact judgment & insight, memory intact, cooperative - Neurologic Neurologic: CNII-XII intact, moves all extremities - Allied Health Allied health notes reviewed: nursing Plan Activity: no restrictions Diet: regular Additional Instructions: Patient is a 71-year-old male past medical history of congestive heart failure, malnutrition, and stage IV colon cancer (diagnosed October 2019declined chemotherapy) with mets to the liver who presented with worsening confusion and generalized weakness. During EMS transport he was found to have a blood pressure of 82/47, febrile, tachycardic to 136, lactic acid 4.3, and WBC 20.1. The patient was started on IV fluids and IV antibiotics (vancomycin and and cefepime). Urinalysis was negative. Blood cultures were drawn, and infectious disease was consulted for further management. Was also found to have hyponatremia that later resolved. Blood cultures revealed gram- negative rods with speciation is pending. The patient demonstrated an improvement with antibiotics, and they were adjusted to Zosyn in the setting of gram-negative rods bacteremia. Due to it taking approximately 7 to 10 days for speciation, the decision was made to transition the patient to p.o. antibiotics (Levaquin 500 mg daily and Flagyl 500 mg every 8 hours) for 10-day course. During the patient's hospitalization, the topic of hospice was brought up, and the patient was receptive to learning more information. The patient will be discharging with hospice services at home. The patient expresses understanding. Patient is medically clear for discharge. Care Plan Goals: Patient is medically cleared for discharge. Assessment: Patient is a 71-year-old male past medical history of congestive heart failure, malnutrition, and stage IV colon cancer (diagnosed October 2019declined chemotherapy) with mets to the liver who presented with worsening confusion and generalized weakness. During EMS transport he was found to have a blood pressure of 82/47, febrile, tachycardic to 136, lactic acid 4.3, and WBC 20.1. The patient was started on IV fluids and IV antibiotics (vancomycin and and cefepime). Urinalysis was negative. Blood cultures were drawn, and infectious disease was consulted for further management. Was also found to have hyponatremia that later resolved. Blood cultures revealed gram-negative rods with speciation is pending. The patient demonstrated an improvement with antibiotics, and they were adjusted to Zosyn in the setting of gram-negative rods bacteremia. Due to it taking approximately 7 to 10 days for speciation, the decision was made to transition the patient to p.o. antibiotics (Levaquin 500 mg daily and Flagyl 500 mg every 8 hours) for 10-day course. During the patient's hospitalization, the topic of hospice was brought up, and the patient was receptive to learning more information. The patient will be discharging with hospice services at home. The patient expresses understanding. Patient is medically clear for discharge. Follow up with: PRIMARY CAREMD [Primary Care Provider] - 7 Days Prescriptions: metroNIDAZOLE [Flagyl] 500 mg PO Q8HR #30 tablet levoFLOXacin [Levaquin TAB] 500 mg PO QDAY #10 tablet
[2021-12-01 15:50] VITALS: BP 107/65
[2021-12-01] MEDS ORDERED: QUEtiapine 25 MG TAB PO SCH (22:00)
== END 2021-12-01 18:52 | disposition hospice, home (50) | DRG 871 ==
LOC: ED 16:32 → 3A 23:22
PROVIDERS: ADMIT Internal Medicine; ATTEND Student in an Organized Health Care Education/Training Program
PROC: 30233N1 Transfusion of Nonautologous Red Blood Cells into Peripheral Vein, Percutaneous Approach (ICD-10-PCS; principal; 2021-12-01)
DX: A41.50 Gram-negative sepsis, unspecified (principal); R65.21 Severe sepsis with septic shock; E43 Unspecified severe protein-calorie malnutrition; N17.0 Acute kidney failure with tubular necrosis; G92.8 Other toxic encephalopathy; Z68.21 Body mass index [BMI] 21.0-21.9, adult; I50.9 Heart failure, unspecified; C18.9 Malignant neoplasm of colon, unspecified; C78.7 Secondary malignant neoplasm of liver and intrahepatic bile duct; E87.1 Hypo-osmolality and hyponatremia; G47.00 Insomnia, unspecified; Z82.49 Family history of ischemic heart disease and other diseases of the circulatory system
CPT/HCPCS: 36415; 71045; 71260; 74177; 80048; 80053; 81001; 82140; 85007; 85025; 86850; 86900; 86901; 86920; 87040; 87086; 93005; 93010; G0378; J3490; Q0162; J0692; J1644; J2543; J3370; J7030; J7040; J7050; J7120; P9016; Q9967

== ENCOUNTER 2022-04-16 14:25 | Emergency (ER) | payer MEDICARE ==
--- NOTE | 2022-04-16 15:55 | XRay Report ---
CHEST 2 VIEWS INDICATION / CLINICAL INFORMATION: SOB. COMPARISON: 11/27/2021 FINDINGS: SUPPORT DEVICES: None. HEART / MEDIASTINUM: Stable. LUNGS / PLEURA: Large masslike lesion at the right lung base has increased significantly from approxi mately 9 cm to 14 cm in greatest dimension. The remainder of the lungs are generally clear. No pleura l effusion or pneumothorax is detected. ADDITIONAL FINDINGS: No obvious bony lesions. IMPRESSION: 1. Increasing mass at the right lung base. No acute process is noted. Signer Name: Robin Maya Jr, MD Signed: 04/16/2022 3:50 PM Workstation Name: [id number]
[2022-04-16 16:11] LABS: Hematocrit 42.2 % (35.5-45.6); Mean Corpuscular HGB Conc 33 % (32-34); Mean Corpuscular Volume 93 fl (84-94); Platelet Count 331 K/mm3 (140-440); Red Blood Count 4.55 M/mm3 (3.65-5.03); Red Cell Distribution Width 14.1 % (13.2-15.2)
[2022-04-16 16:28] LABS: Alanine Aminotransferase 11 units/L (7-56); BUN/Creatinine Ratio 11; Blood Urea Nitrogen 12 mg/dL (9-20); Calcium 9.6 mg/dL (8.4-10.2); Hemolysis Index 0
[2022-04-17] MEDS ORDERED: ACETAMINOPHEN W/CODEINE 300-30 MG TAB PO ONE (03:32)
--- NOTE | 2022-04-17 03:52 | Emergency Department Report ---
ED General Adult HPI - General Chief complaint: Dyspnea/Respdistress Stated complaint: SHORT OF BREATH FOR A WEEK Time Seen by Provider: 04/16/22 20:22 Source: patient Mode of arrival: Ambulatory Limitations: No Limitations - History of Present Illness Initial comments: Patient 71-year-old man with history of liver CA, right lung mass, who presents for right flank upper back pain the past 4 days patient states pain at 5/10 exacerbated by deep inspiration. Patient states he is out of pain medication. Patient has primary care provider however has been unable to get medications refilled. There is no nausea there is no vomiting there is no chest pain no shortness of breath no dizziness no lightheadedness no nausea or vomiting. Patient tolerating p.o. intake without problems. Patient denies fall injury or trauma. Patient states pain is chronic this is usual location and intensity for his pain flare. Patient drove self to ED tonight patient is alert oriented x3 patient appears nontoxic patient is amatory with no acute distress. - Related Data Previous Rx's Medication Instructions Recorded Last Taken Type levoFLOXacin [Levaquin TAB] 500 mg PO QDAY #10 tablet 12/01/21 Unknown Rx metroNIDAZOLE [Flagyl] 500 mg PO Q8HR #30 tablet 12/01/21 Unknown Rx Albuterol Mdi (or & Nicu Only) 2 puff IH QID PRN #8.5 gram 04/17/22 Unknown Rx [ProAir HFA Inhaler] Azithromycin 500 mg PO DAILY 5 Days #5 tab 04/17/22 Unknown Rx HYDROcodone/APAP 5-325 [Sugar Tree 1 each PO Q6HR PRN #12 tablet 04/17/22 Unknown Rx 5-325 mg TAB] predniSONE [Deltasone] 40 mg PO QDAY 5 Days #10 tab 04/17/22 Unknown Rx Allergies Allergy/AdvReac Type Severity Reaction Status Date / Time No Known Allergies Allergy Unverified 11/27/21 16:36 ED Review of Systems ROS: Stated complaint: SHORT OF BREATH FOR A WEEK Other details as noted in HPI Constitutional: denies: chills, fever Eyes: denies: eye pain, eye discharge, vision change ENT: denies: ear pain, throat pain Respiratory: no symptoms reported Cardiovascular: denies: chest pain, palpitations Endocrine: no symptoms reported Gastrointestinal: denies: abdominal pain, nausea, diarrhea Genitourinary: denies: urgency, dysuria Musculoskeletal: denies: back pain (Right flank), joint swelling, arthralgia Skin: denies: rash, lesions Neurological: denies: headache, weakness, paresthesias Psychiatric: denies: anxiety, depression Hematological/Lymphatic: denies: easy bleeding, easy bruising ED Past Medical Hx - Past Medical History Hx Congestive Heart Failure: Yes Additional medical history: Metastatic liver cancer - Social History Smoking Status: Never Smoker - Medications Home Medications: Home Medications Medication Instructions Recorded Confirmed Last Taken Type levoFLOXacin [Levaquin TAB] 500 mg PO QDAY #10 tablet 12/01/21 Unknown Rx metroNIDAZOLE [Flagyl] 500 mg PO Q8HR #30 tablet 12/01/21 Unknown Rx Albuterol Mdi (or & Nicu Only) 2 puff IH QID PRN #8.5 gram 04/17/22 Unknown Rx [ProAir HFA Inhaler] Azithromycin 500 mg PO DAILY 5 Days #5 tab 04/17/22 Unknown Rx HYDROcodone/APAP 5-325 [[place] 1 each PO Q6HR PRN #12 tablet 04/17/22 Unknown Rx 5-325 mg TAB] predniSONE [Deltasone] 40 mg PO QDAY 5 Days #10 tab 04/17/22 Unknown Rx ED Physical Exam - General Limitations: No Limitations General appearance: alert - Head Head exam: Present: normocephalic, normal inspection - Eye Eye exam: Present: normal appearance, EOMI Pupils: Present: normal accommodation - ENT ENT exam: Present: mucous membranes moist. Absent: normal orophraynx - Neck Neck exam: Present: normal inspection, full ROM. Absent: tenderness, lymphadenopathy - Respiratory Respiratory exam: Present: normal lung sounds bilaterally. Absent: respiratory distress, wheezes, stridor, chest wall tenderness - Cardiovascular Cardiovascular Exam: Present: regular rate, normal rhythm, normal heart sounds. Absent: systolic murmur, diastolic murmur, rubs, gallop - GI/Abdominal GI/Abdominal exam: Present: soft, normal bowel sounds. Absent: distended, tenderness, guarding, rebound, rigid, bruit, hernia - Rectal Rectal exam: Present: deferred - Extremities Exam Extremities exam: Present: normal inspection, full ROM, normal capillary refill - Back Exam Back exam: Present: normal inspection, full ROM. Absent: CVA tenderness (R) (Right upper flank pain no ecchymosis no step-off no crepitus), CVA tenderness (L) - Neurological Exam Neurological exam: Present: alert, oriented X3, CN II-XII intact, normal gait - Expanded Neurological Exam Expanded Patient oriented to: Present: person, place, time Speech: Present: fluid speech Motor strength exam: RUE: 5, LUE: 5, RLE: 5, LLE: 5 Best Eye Response ([place]): (4) open spontaneously Best Motor Response ([place]): (6) obeys commands Best Verbal Response ([place]): (5) oriented [place] Total: 15 - Psychiatric Psychiatric exam: Present: normal affect, normal mood - Skin Skin exam: Present: warm, dry, intact, normal color. Absent: rash ED Course Vital Signs 04/16/22 15:12 Temperature 98.2 F Pulse Rate 112 H Respiratory 20 Rate Blood Pressure 153/105 O2 Sat by Pulse 95 Oximetry ED Medical Decision Making - Lab Data Result diagrams: 04/16/22 15:45 04/16/22 15:45 Labs 04/16/22 04/16/22 15:45 15:45 WBC 8.1 RBC 4.55 Hgb 14.0 Hct 42.2 MCV 93 MCH 31 MCHC 33 RDW 14.1 Plt Count 331 Sodium 132 L Potassium 3.9 Chloride 93.0 L Carbon Dioxide 29 Anion Gap 14 BUN 12 Creatinine 1.1 Estimated GFR > 60 BUN/Creatinine Ratio 11 Glucose 125 H Calcium 9.6 Total Bilirubin 1.50 H AST 22 ALT 11 Alkaline Phosphatase 106 Troponin T < 0.010 Total Protein 9.7 H Albumin 4.0 Albumin/Globulin Ratio 0.7 - Radiology Data Radiology results: report reviewed, image reviewed CHEST 2 VIEWS INDICATION / CLINICAL INFORMATION: SOB. COMPARISON: 11/27/2021 FINDINGS: SUPPORT DEVICES: None. HEART / MEDIASTINUM: Stable. LUNGS / PLEURA: Large masslike lesion at the right lung base has increased significantly from approximately 9 cm to 14 cm in greatest dimension. The remainder of the lungs are generally clear. No pleural effusion or pneumothorax is detected. ADDITIONAL FINDINGS: No obvious bony lesions. IMPRESSION: 1. Increasing mass at the right lung base. No acute process is noted. Signer Name: Robin Lopez Jr, MD Signed: 04/16/2022 3:50 PM Workstation Name: [id number] Transcribed By: TTR Dictated By: ROBIN LOPEZ JR, MD Electronically Authenticated By: ROBIN LOPEZ JR, MD Signed Date/Time: 04/16/22 1550 DD/ 1549 TD/TT: - Medical Decision Making EKG normal sinus rhythm no ST elevated [place] interpreted by ED attending, troponin less than 0.01, right lung mass is chronic for this patient. As well as liver CA, patient states recent released from hospice. Plan refill medications as written requested, follow-up with primary care doctor in 2 to 3 days. Patient currently alert oriented x3 lung sounds are clear throughout is ambulatory without increased shortness of breath. Vital signs are improved patient will be DC'd to self at this time patient will be transported home via family member. Critical care attestation.: If time is entered above; I have spent that time in minutes in the direct care of this critically ill patient, excluding procedure time. ED Disposition Clinical Impression: Flank pain, Lung mass Disposition: HOME / SELF CARE / HOMELESS Is pt being admited?: No Does the pt Need Aspirin: No Condition: Stable Instructions: Flank Pain, Adult, [id number] Additional Instructions: Take medications as prescribed, follow-up with your doctor in 2 to 3 days. Return to emergency department should symptoms worsen. Prescriptions: Azithromycin 500 mg PO DAILY 5 Days #5 tab predniSONE [Deltasone] 40 mg PO QDAY 5 Days #10 tab HYDROcodone/APAP 5-325 [[place] 5-325 mg TAB] 1 each PO Q6HR PRN #12 tablet PRN Reason: Pain Albuterol Mdi (or & Nicu Only) [ProAir HFA Inhaler] 2 puff IH QID PRN #8.5 gram PRN Reason: Shortness Of Breath Referrals: FILI HOPE MD [Staff Physician] - 2-3 Days RENETTA FAULKNER MD [Staff Physician] - 2-3 Days Forms: Work/School Release Form(ED) Time of Disposition: 04:03
[2022-04-17 04:30] VITALS: BP 134/66
--- NOTE | 2022-04-18 08:51 | Electrocardiograph Report ---
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
== END 2022-04-17 04:48 | disposition home or self-care (01) ==
LOC: ED 14:25
DX: R10.9 Unspecified abdominal pain (principal); R91.8 Other nonspecific abnormal finding of lung field; I11.0 Hypertensive heart disease with heart failure; I50.9 Heart failure, unspecified
CPT/HCPCS: 36415; 71046; 80053; 84484; 85027; 93005; 99284